=== PATIENT | female | born 1975 | race Caucasian/White ===

== ENCOUNTER 2018-06-20 18:19 | Emergency (ER) | payer OTHER ==
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
[2018-06-20] MEDS ORDERED: MIDAZOLAM 2 MG/2 ML INJ IM ONE (20:11)
[2018-06-20] MEDS ORDERED: HALOPERIDOL LACTATE INJ 5 MG/1 ML VIAL IM ONE (20:11)
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
[2018-06-20 20:54] LABS: ABSOLUTE EOSINOPHILS # (AUTO) 0.1 10^3/uL (0.0-0.6); ABSOLUTE LYMPHOCYTES (AUTO) 2.5 10^3/uL (0.5-4.7); ABSOLUTE MONOCYTES (AUTO) 0.5 10^3/uL (0.1-1.4); ABSOLUTE NEUT (AUTO) 5.3 10^3/uL (1.7-8.2); BASOPHILS % (AUTO) 0.2 % (0-2); EOSINOPHILS % (AUTO) 0.9 % (0-6); HEMATOCRIT 38.6 % (36.0-47.0); HEMOGLOBIN 13.4 g/dL (12.0-15.5); LYMPHOCYTES % (AUTO) 29.6 % (13-45); MEAN CORPUSCULAR HEMOGLOBIN 32.1 pg (27.0-33.4); MEAN CORPUSCULAR HGB CONC 34.8 g/dL (32.0-36.0); MEAN CORPUSCULAR VOLUME 92 fl (80-97); MONOCYTES % (AUTO) 6.3 % (3-13); PLATELET COUNT 263 10^3/uL (150-450); RED BLOOD COUNT 4.18 10^6/uL (3.72-5.28); RED CELL DISTRIBUTION WIDTH 12.8 % (11.5-14.0); TOTAL CELLS COUNTED % (AUTO) 100 %; WHITE BLOOD COUNT 8.4 10^3/uL (4.0-10.5)
[2018-06-20 21:15] LABS: ACETAMINOPHEN < 10 ug/mL (10-30); ALANINE AMINOTRANSFERASE 31 U/L (9-52); ALBUMIN 4.8 g/dL (3.5-5.0); ALCOHOL < 10 mg/dL (NONE DETECTED); ALKALINE PHOSPHATASE 62 U/L (38-126); ANION GAP 13 (5-19); ASPARTATE AMINO TRANSFERASE 32 U/L (14-36); BILIRUBIN,DIRECT 0.3 mg/dL (0.0-0.4); BILIRUBIN,TOTAL 0.3 mg/dL (0.2-1.3); BLOOD UREA NITROGEN 13 mg/dL (7-20); CALCIUM 9.8 mg/dL (8.4-10.2); CARBON DIOXIDE 21 mmol/L (22-30); CHLORIDE 108 mmol/L (98-107); GLUCOSE 96 mg/dL (75-110); SALICYLATE < 1.0 mg/dL (2.0-20.0); SODIUM 141.6 mmol/L (137-145); TOTAL PROTEIN 7.7 g/dL (6.3-8.2)
[2018-06-21 00:38] LABS: APPEARANCE,URINE SLIGHTLY-CLOUDY; BILIRUBIN,URINE NEGATIVE (NEGATIVE); COLOR,URINE YELLOW; GLUCOSE, URINE NEGATIVE (NEGATIVE); KETONES,URINE TRACE mg/dL (NEGATIVE); LEUKOCYTE ESTERASE,URINE MODERATE (NEGATIVE); NITRITE,URINE NEGATIVE (NEGATIVE); PROTEIN,URINE NEGATIVE (NEGATIVE); URINE SPECIFIC GRAVITY 1.008; UROBILINOGEN,URINE NEGATIVE mg/dL (<2.0)
[2018-06-21 00:54] LABS: URINE AMPHETAMINES SCREEN NEGATIVE; URINE BARBITURATES SCREEN NEGATIVE; URINE BENZODIAZEPINES SCREEN UNCONFIRMED POSITIVE; URINE COCAINE SCREEN NEGATIVE; URINE MARIJUANA (THC) SCREEN NEGATIVE; URINE METHADONE SCREEN NEGATIVE; URINE PHENCYCLIDINE SCREEN NEGATIVE
--- NOTE | 2018-06-21 07:43 | EKG REPORT ---
SEVERITY:- NORMAL ECG - SINUS RHYTHM : Confirmed by: Pernell Chadwick MD 21-Jun-2018 07:43:28
[2018-06-21 09:05] VITALS: BP 120/60
[2018-06-21] MEDS ORDERED: CHLORPROMAZINE HCL 50 MG TABLET PO SCH (10:00)
[2018-06-21] MEDS ORDERED: DIVALPROEX SODIUM 250 MG TAB.SR.24H PO SCH (10:00)
[2018-06-21] MEDS ORDERED: BENZTROPINE MESYLATE 1 MG TABLET PO SCH (10:00)
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
[2018-06-21] MEDS ORDERED: CHLORPROMAZINE HCL INJ 25 MG/1 ML AMPULE IM ONE (10:09)
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
== END 2018-06-21 15:05 ==
LOC: EDBD → ER 18:19
DX: F22 Delusional disorders (principal); F29 Unspecified psychosis not due to a substance or known physiological condition
CPT/HCPCS: 93005; 99285; 96372; 36415; 87086; 80307 ×4; 84703; 85025; 80053; 81001; 93010; J2250; J3230; J1630; J3490

== ENCOUNTER 2018-09-16 17:31 | Emergency (ER) | payer OTHER ==
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
[2018-09-16 19:33] LABS: AMORPHOUS SEDIMENT,URINE TRACE /HPF; APPEARANCE,URINE CLOUDY; BILIRUBIN,URINE NEGATIVE (NEGATIVE); COLOR,URINE YELLOW; GLUCOSE, URINE NEGATIVE (NEGATIVE); KETONES,URINE NEGATIVE (NEGATIVE); LEUKOCYTE ESTERASE,URINE LARGE (NEGATIVE); NITRITE,URINE NEGATIVE (NEGATIVE); PROTEIN,URINE NEGATIVE (NEGATIVE); URINE SPECIFIC GRAVITY 1.005; UROBILINOGEN,URINE NEGATIVE mg/dL (<2.0)
[2018-09-16 19:45] LABS: URINE AMPHETAMINES SCREEN NEGATIVE; URINE BARBITURATES SCREEN NEGATIVE; URINE BENZODIAZEPINES SCREEN NEGATIVE; URINE COCAINE SCREEN NEGATIVE; URINE MARIJUANA (THC) SCREEN NEGATIVE; URINE METHADONE SCREEN NEGATIVE; URINE PHENCYCLIDINE SCREEN NEGATIVE
[2018-09-16 19:51] LABS: ABSOLUTE EOSINOPHILS # (AUTO) 0.1 10^3/uL (0.0-0.6); ABSOLUTE LYMPHOCYTES (AUTO) 2.3 10^3/uL (0.5-4.7); ABSOLUTE MONOCYTES (AUTO) 0.5 10^3/uL (0.1-1.4); ABSOLUTE NEUT (AUTO) 4.5 10^3/uL (1.7-8.2); BASOPHILS % (AUTO) 0.3 % (0-2); EOSINOPHILS % (AUTO) 1.4 % (0-6); HEMATOCRIT 40.2 % (36.0-47.0); HEMOGLOBIN 13.9 g/dL (12.0-15.5); LYMPHOCYTES % (AUTO) 31.2 % (13-45); MEAN CORPUSCULAR HEMOGLOBIN 31.3 pg (27.0-33.4); MEAN CORPUSCULAR HGB CONC 34.7 g/dL (32.0-36.0); MEAN CORPUSCULAR VOLUME 90 fl (80-97); MONOCYTES % (AUTO) 7.3 % (3-13); PLATELET COUNT 350 10^3/uL (150-450); RED BLOOD COUNT 4.45 10^6/uL (3.72-5.28); RED CELL DISTRIBUTION WIDTH 12.8 % (11.5-14.0); SEGMENTED NEUTROPHILS % (AUTO) 59.8 % (42-78); TOTAL CELLS COUNTED % (AUTO) 100 %; WHITE BLOOD COUNT 7.5 10^3/uL (4.0-10.5)
[2018-09-16 20:06] LABS: ALANINE AMINOTRANSFERASE 17 U/L (9-52); ALBUMIN 4.8 g/dL (3.5-5.0); ALKALINE PHOSPHATASE 62 U/L (38-126); ANION GAP 13 (5-19); ASPARTATE AMINO TRANSFERASE 19 U/L (14-36); BILIRUBIN,DIRECT 0.2 mg/dL (0.0-0.4); BILIRUBIN,TOTAL 0.3 mg/dL (0.2-1.3); BLOOD UREA NITROGEN 9 mg/dL (7-20); CALCIUM 9.7 mg/dL (8.4-10.2); CARBON DIOXIDE 26 mmol/L (22-30); CHLORIDE 102 mmol/L (98-107); GLUCOSE 99 mg/dL (75-110); POTASSIUM 4.2 mmol/L (3.6-5.0); SODIUM 141.4 mmol/L (137-145)
[2018-09-16 20:07] LABS: ACETAMINOPHEN < 10 ug/mL (10-30); ALCOHOL < 10 mg/dL (NONE DETECTED); SALICYLATE < 1.0 mg/dL (2.0-20.0)
--- NOTE | 2018-09-16 20:11 | ER Document Report ---
ED Psych Disorder / Suicide - General Chief Complaint: Psych Problem Stated Complaint: PSYC EVAL Time Seen by Provider: 09/16/18 18:23 Notes: Patient is a 42-year-old female with a history of paranoid schizophrenia that comes to the emergency department for chief complaint of running out of her medications. She also states she wants to be checked to see if she is . She states that she had prescribed medications but she tore up her prescriptions because at that time she did not want to take them, she states she has changed her mind and she needs her prescriptions. When asked what medications she takes she states she does not know and she does not like being interrogated. She states everywhere she goes she is interrogated. She states she came "my car", she also is complaining of blisters on her feet, she brought multiple bags with her and appears to be homeless although she denies this and states she lives at home with her family. Patient last seen here at the end of May, transferred to [facility], then was at [place], patient cannot tell me when she got out of [place]. TRAVEL OUTSIDE OF THE [place] IN LAST 30 DAYS: No - Related Data Allergies/Adverse Reactions: lactose Adverse Reaction (Verified 06/20/18 18:26) Past Medical History - General Information source: Patient - Social History Smoking Status: Current Every Day Smoker Chew tobacco use (# tins/day): No Frequency of alcohol use: None Drug Abuse: None Lives with: Alone Family History: Reviewed & Not Pertinent Patient has suicidal ideation: No Patient has homicidal ideation: No Renal/ Medical History: Denies: Hx Peritoneal Dialysis Psychiatric Medical History: Reports: Hx Depression, Hx Schizophrenia Past Surgical History: Reports: Hx Nose Surgery - nose, Hx Orthopedic Surgery - R knee - Immunizations Immunizations up to date: Yes Hx Diphtheria, Pertussis, Tetanus Vaccination: Yes Review of Systems - Review of Systems Constitutional: No symptoms reported EENT: No symptoms reported Cardiovascular: No symptoms reported Respiratory: No symptoms reported Gastrointestinal: No symptoms reported Genitourinary: No symptoms reported Female Genitourinary: No symptoms reported Musculoskeletal: No symptoms reported Skin: No symptoms reported Hematologic/Lymphatic: No symptoms reported Neurological/Psychological: See HPI Physical Exam - Vital signs Vitals: Temp Pulse Resp BP Pulse Ox 97.9 F 85 20 124/90 H 98 09/16/18 18:09 09/16/18 18:09 09/16/18 18:09 09/16/18 18:09 09/16/18 18:09 - Notes Notes: GENERAL: Alert. No acute distress. HEAD: Normocephalic, atraumatic. EYES: Pupils equal, round, and reactive to light. Extraocular movements intact. ENT: Oral mucosa moist, tongue midline. Oropharynx unremarkable. Airway patent. Nares patent, no nasal septal hematoma, TM's intact. NECK: Full range of motion. Supple. Trachea midline. LUNGS: Clear to auscultation bilaterally, no wheezes, rales, or rhonchi. No respiratory distress. HEART: Regular rate and rhythm. No murmur ABDOMEN: Soft, non-tender. Non-distended. Bowel sounds present in all 4 quadrants. GENITOURINARY: Deferred EXTREMITIES: Moves all 4 extremities spontaneously. No edema, normal radial and dorsalis pedis pulses bilaterally. No cyanosis. BACK: no cervical, thoracic, lumbar midline tenderness. No saddle anesthesia, normal distal neurovascular exam. NEUROLOGICAL: Alert and oriented x3. Normal speech. [cranial nerves II through XII grossly intact]. PSYCH: Pressured speech, disorganized thought, intermittent anxiety SKIN: Warm, dry, normal turgor. No rashes or lesions noted. Course - Re-evaluation Re-evalutation: Patient has no illicit contacts, cannot give me a name or contact for the family she states she lives with, she appears homeless, she has disorganized thought but she denies hallucinations, hearing voices, SI or HI. Intermittently she says bizarre statements, she intermittently becomes agitated and states everyone always interrogates her, she repeats this over and over. Patient does not have any listed prescriptions here from previously and cannot tell me what she used to be on. Patient has pressured speech and disorganized thought although she does not appear to be actively hallucinating. 09/16/18 On reevaluation patient is much more calm. She states that her doctor is Dr. Garcia, she states he might know her medications. The only medication she really cannot recall at this time is naproxen p.m. She asks for this to be given to her to sleep tonight. She is unsure of her psychiatric medications. The system here does not show any logged data showing her psychiatric medications either, the system also does not show a contact for the patient, patient was unable to tell me a contact when I asked her. Patient is much more calm and cooperative however. She asks pertinent questions, she does not have pressured speech or disorganized thought to the same degree as before. She does not appear to be actively psychotic at this time, she is not suicidal or homicidal, there is no indication for involuntary commitment. I discussed laboratory workup details with patient, informed her of her negative test, discussed her urinalysis, she states she is having urinary frequency and pain, she will be placed on Keflex, she is very agreeable with this. She requests naproxen and Benadryl. After lengthy discussion patient requesting to stay here for medication recommendations so she can get back on medication since she changed her mind about not wanting them begin with. Mental health consult placed, patient is medically cleared. - Vital Signs Vital signs: Temp Pulse Resp BP Pulse Ox 97.9 F 85 20 124/90 H 98 09/16/18 18:09 09/16/18 18:09 09/16/18 18:09 09/16/18 18:09 09/16/18 18:09 - Laboratory Result Diagrams: 09/16/18 19:33 09/16/18 19:33 Laboratory results interpreted by me: 09/16/18 09/16/18 18:30 19:33 Ur Leukocyte Esterase LARGE H Salicylates < 1.0 L Acetaminophen < 10 L Discharge - Discharge Clinical Impression: Noncompliance with medication regimen Schizophrenia Qualifiers: Schizophrenia type: paranoid schizophrenia Qualified Code(s): F20.0 - Paranoid schizophrenia Condition: Stable Disposition: PSYCH HOSP/UNIT
[2018-09-16] MEDS ORDERED: NAPROXEN 250 MG TABLET PO ONE (23:27)
[2018-09-16] MEDS ORDERED: DIPHENHYDRAMINE HCL 25 MG CAPSULE PO ONE (23:27)
[2018-09-16] MEDS ORDERED: CEPHALEXIN 500 MG CAPSULE PO ONE (23:27)
--- NOTE | 2018-09-17 08:02 | EKG REPORT ---
SEVERITY:- NORMAL ECG - SINUS RHYTHM : Confirmed by: Glenda Ferro MD 17-Sep-2018 08:01:42
--- NOTE | 2018-09-17 09:16 | ER Document Report ---
Doctor's Note Notes: 09/17/18 09:15 42-year-old female with past medical history of schizophrenia who supposedly threw away her prescriptions because she did not want prescriptions at that time , who is possibly homeless, who is followed here locally by the psychiatrist, who presents requesting medication adjustments and possibly new scripts for home medications. Labs as recorded. Vital signs are stable. She does appear to have a urinary tract infection which is currently being treated with Keflex. 09/17/18 17:01 Dr. Coppola the head of the psychology department has seen and evaluated the patient. Given that the patient is homeless she advised a Haldol 100 mg IM injection. She has set up community paramedics to follow the patient through Mrs. Lozoya. She states that the patient has the Keflex for her urinary tract infection as well as for the small blister/ulcer on her foot. Strict return precautions have been explained to the patient. She denies any suicidal or homicidal ideations at this time. She is calm and cooperative and understands the follow-up instructions.
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
[2018-09-17] MEDS ORDERED: HALOPERIDOL DECANOATE INJ 100 MG/1 ML VIAL IM ONE (16:05)
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
[2018-09-17 17:38] VITALS: BP 130/80
== END 2018-09-17 17:28 | disposition home or self-care (01) ==
LOC: ER 17:31
DX: F20.0 Paranoid schizophrenia (principal); Z91.14 Patient's other noncompliance with medication regimen; F17.200 Nicotine dependence, unspecified, uncomplicated
CPT/HCPCS: 36415; 80053; 80307; 81001; 81025; 84703; 85025; 93005; 93010; 99285

== ENCOUNTER 2018-12-20 10:54 | Inpatient (IN) | payer OTHER ==
[2018-12-20 11:32] LABS: ABSOLUTE LYMPHOCYTES (AUTO) 1.1 10^3/uL (0.5-4.7); ABSOLUTE MONOCYTES (AUTO) 0.6 10^3/uL (0.1-1.4); ABSOLUTE NEUT (AUTO) 5.5 10^3/uL (1.7-8.2); BASOPHILS % (AUTO) 0.3 % (0-2); HEMATOCRIT 39.4 % (36.0-47.0); LYMPHOCYTES % (AUTO) 15.7 % (13-45); MEAN CORPUSCULAR HEMOGLOBIN 31.6 pg (27.0-33.4); MEAN CORPUSCULAR HGB CONC 35.4 g/dL (32.0-36.0); MEAN CORPUSCULAR VOLUME 89 fl (80-97); MONOCYTES % (AUTO) 7.6 % (3-13); PLATELET COUNT 285 10^3/uL (150-450); RED BLOOD COUNT 4.42 10^6/uL (3.72-5.28); RED CELL DISTRIBUTION WIDTH 13.2 % (11.5-14.0); SEGMENTED NEUTROPHILS % (AUTO) 76.4 % (42-78); TOTAL CELLS COUNTED % (AUTO) 100 %; WHITE BLOOD COUNT 7.3 10^3/uL (4.0-10.5)
[2018-12-20 11:40] LABS: INTERNATIONAL RATION (INR) 1.05; PROTHROMBIN TIME 14.2 SEC (11.4-15.4)
[2018-12-20 11:46] LABS: APPEARANCE,URINE SLIGHTLY-CLOUDY; BILIRUBIN,URINE NEGATIVE (NEGATIVE); COLOR,URINE YELLOW; GLUCOSE, URINE NEGATIVE (NEGATIVE); KETONES,URINE 20 mg/dL (NEGATIVE); LEUKOCYTE ESTERASE,URINE NEGATIVE (NEGATIVE); NITRITE,URINE NEGATIVE (NEGATIVE); PROTEIN,URINE 30 mg/dL (NEGATIVE); URINE SPECIFIC GRAVITY 1.021; UROBILINOGEN,URINE NEGATIVE mg/dL (<2.0)
--- NOTE | 2018-12-20 11:48 | ER Document Report ---
ED General - General Chief Complaint: Altered Mental Status Stated Complaint: ALTERED MENTAL STATUS Time Seen by Provider: 12/20/18 11:33 Mode of Arrival: Medic Information source: Patient, Law Enforcement, Emergency Med Personnel, [facility] Records Cannot obtain history due to: Altered mental status Notes: 42-year-old female with history of paranoid schizophrenia presents via EMS/[facility] with altered mental status. Patient is well-known to [place] [employer] they state the patient is homeless, but one found today she appeared more altered than normal. Patient is alert and oriented x2. She is a poor informant but denies any fall, headache, chest pain, shortness of breath, abdominal pain. She does know that she is at [facility]. TRAVEL OUTSIDE OF THE [place] IN LAST 30 DAYS: No - HPI Onset: Just prior to arrival Similar symptoms previously: Yes Recently seen / treated by doctor: No - Related Data Allergies/Adverse Reactions: lactose Adverse Reaction (Verified 06/20/18 18:26) Past Medical History - General Information source: Patient, Law Enforcement, Emergency Med Personnel, [facility] Records - Social History Smoking Status: Current Every Day Smoker Cigarette use (# per day): Yes - 15 Smoking Education Provided: Yes - Smoking cessation counseling was provided for 4 minutes at the bedside Frequency of alcohol use: None Drug Abuse: None Lives with: Homeless Family History: Reviewed & Not Pertinent Patient has suicidal ideation: No Patient has homicidal ideation: No Renal/ Medical History: Denies: Hx Peritoneal Dialysis Psychiatric Medical History: Reports: Hx Depression, Hx Schizophrenia Past Surgical History: Reports: Hx Nose Surgery - nose, Hx Orthopedic Surgery - R knee - Immunizations Immunizations up to date: Yes Hx Diphtheria, Pertussis, Tetanus Vaccination: Yes Review of Systems - Review of Systems -: Yes ROS unobtainable due to patient's medical condition Physical Exam - Vital signs Vitals: Resp BP Pulse Ox 21 H 110/77 96 12/20/18 11:01 12/20/18 11:01 12/20/18 11:01 - Notes Notes: PHYSICAL EXAMINATION: GENERAL: Unkept no acute distress. HEAD: Atraumatic, normocephalic. EYES: Pupils equal round and reactive to light, extraocular movements intact, conjunctiva are normal. ENT: Nares patent, oropharynx clear without exudates. Moist mucous membranes. NECK: Normal range of motion, supple without lymphadenopathy LUNGS: Breath sounds clear to auscultation bilaterally and equal. No wheezes rales or rhonchi. HEART: Regular rate and rhythm without murmurs ABDOMEN: Soft, nontender, nondistended abdomen. No guarding, no rebound. No masses appreciated. Female : deferred Musculoskeletal: Normal range of motion, no pitting or edema. No cyanosis. NEUROLOGICAL: Cranial nerves grossly intact. Slowed speech, Normal sensory, m otor exams PSYCH: Flat affect, intermittently answers questions. SKIN: Warm, Dry, normal turgor, no rashes or lesions noted. Course - Re-evaluation Re-evalutation: 12/20/18 16:05 Laboratory 12/20/18 12/20/18 12/20/18 11:06 11:06 11:06 WBC 7.3 RBC 4.42 Hgb 14.0 Hct 39.4 MCV 89 MCH 31.6 MCHC 35.4 RDW 13.2 Plt Count 285 Seg Neutrophils % 76.4 Lymphocytes % 15.7 Monocytes % 7.6 Eosinophils % 0.0 Basophils % 0.3 Absolute Neutrophils 5.5 Absolute Lymphocytes 1.1 Absolute Monocytes 0.6 Absolute Eosinophils 0.0 Absolute Basophils 0.0 PT 14.2 INR 1.05 Sodium 141.2 Potassium 3.6 Chloride 99 Carbon Dioxide 31 H Anion Gap 11 BUN 13 Creatinine 0.61 Est GFR ( Amer) > 60 Est GFR (Non-Af Amer) > 60 Glucose 101 Calcium 9.8 Total Bilirubin 0.8 Direct Bilirubin 0.2 Neonat Total Bilirubin Not Reportable Neonat Direct Bilirubin Not Reportable Neonat Indirect Bili Not Reportable AST 449 H ALT 177 H Alkaline Phosphatase 66 Creatine Kinase 02912 H Total Protein 7.8 Albumin 5.0 Urine Color Urine Appearance Urine pH Ur Specific [place] Urine Protein Urine Glucose (UA) Urine Ketones Urine Blood Urine Nitrite Urine Bilirubin Urine Urobilinogen Ur Leukocyte Esterase Urine WBC (Auto) Urine RBC (Auto) Squamous Epi Cells Auto Urine Mucus (Auto) Urine Ascorbic Acid Urine HCG, Qual Urine Opiates Screen Urine Methadone Screen Ur Barbiturates Screen Ur Phencyclidine Scrn Ur Amphetamines Screen U Benzodiazepines Scrn Urine Cocaine Screen U Marijuana (THC) Screen 12/20/18 12/20/18 11:35 11:35 WBC RBC Hgb Hct MCV MCH MCHC RDW Plt Count Seg Neutrophils % Lymphocytes % Monocytes % Eosinophils % Basophils % Absolute Neutrophils Absolute Lymphocytes Absolute Monocytes Absolute Eosinophils Absolute Basophils PT INR Sodium Potassium Chloride Carbon Dioxide Anion Gap BUN Creatinine Est GFR ( Amer) Est GFR (Non-Af Amer) Glucose Calcium Total Bilirubin Direct Bilirubin Neonat Total Bilirubin Neonat Direct Bilirubin Neonat Indirect Bili AST ALT Alkaline Phosphatase Creatine Kinase Total Protein Albumin Urine Color YELLOW Urine Appearance SLIGHTLY-CLOUDY Urine pH 6.0 Ur Specific [place] 1.021 Urine Protein 30 H Urine Glucose (UA) NEGATIVE Urine Ketones 20 H Urine Blood MODERATE H Urine Nitrite NEGATIVE Urine Bilirubin NEGATIVE Urine Urobilinogen NEGATIVE Ur Leukocyte Esterase NEGATIVE Urine WBC (Auto) 1 Urine RBC (Auto) 4 Squamous Epi Cells Auto 1 Urine Mucus (Auto) RARE Urine Ascorbic Acid NEGATIVE Urine HCG, Qual NEGATIVE Urine Opiates Screen NEGATIVE Urine Methadone Screen NEGATIVE Ur Barbiturates Screen NEGATIVE Ur Phencyclidine Scrn NEGATIVE Ur Amphetamines Screen NEGATIVE U Benzodiazepines Scrn NEGATIVE Urine Cocaine Screen NEGATIVE U Marijuana (THC) Screen NEGATIVE Head CT 12/20/18 11:33 IMPRESSION: NO ACUTE INTRACRANIAL IMAGING FINDINGS. EVIDENCE OF ACUTE STROKE: NO. Pelvis X-Ray 12/20/18 14:52 IMPRESSION: No acute displaced fracture. If there is clinical concern for a sacrococcygeal injury, recommend lateral view of the sacrum and coccyx Temp Pulse Resp BP Pulse Ox 97.9 F 97 16 161/97 H 98 12/20/18 11:14 12/20/18 11:14 12/20/18 11:14 12/20/18 15:01 12/20/18 15:01 12/20/18 16:07 42-year-old female with known paranoid schizophrenia who is unfortunately currently homeless was brought in by [facility] due to altered mental status. Patient unable to provide much of a history. She denies any pain, falls on my exam. Labs were obtained and showed the patient to be an rhabdomyolysis. Patient's CK is greater than 17,000. IV fluids was initiated. Patient is without leukocytosis, anemia. Kidney function within normal limits. Urine drug screen negative. Patient has been accepted by the hospitalist for admission - Vital Signs Vital signs: Temp Pulse Resp BP Pulse Ox 97.9 F 97 16 161/97 H 98 12/20/18 11:14 12/20/18 11:14 12/20/18 11:14 12/20/18 15:01 12/20/18 15:01 - Laboratory Result Diagrams: 12/20/18 11:06 12/20/18 11:06 Laboratory results interpreted by me: 12/20/18 12/20/18 11:06 11:35 Carbon Dioxide 31 H AST 449 H ALT 177 H Creatine Kinase 18156 H Urine Protein 30 H Urine Ketones 20 H Urine Blood MODERATE H - EKG Interpretation by Me EKG shows normal: Sinus rhythm Rate: Normal Rhythm: NSR When compared to previous EKG there are: No significant change Discharge - Discharge Clinical Impression: Paranoid schizophrenia, Transaminitis Altered mental status Qualifiers: Altered mental status type: unspecified Qualified Code(s): R41.82 - Altered mental status, unspecified Rhabdomyolysis Qualifiers: Rhabdomyolysis type: non-traumatic Qualified Code(s): M62.82 - Rhabdomyolysis Condition: Good Disposition: ADMITTED INPATIENT Admitting Provider: Hospitalist Unit Admitted: Medical Floor
[2018-12-20 11:51] LABS: ALANINE AMINOTRANSFERASE 177 U/L (9-52); ALKALINE PHOSPHATASE 66 U/L (38-126); ANION GAP 11 (5-19); ASPARTATE AMINO TRANSFERASE 449 U/L (14-36); BILIRUBIN,DIRECT 0.2 mg/dL (0.0-0.4); BILIRUBIN,TOTAL 0.8 mg/dL (0.2-1.3); BLOOD UREA NITROGEN 13 mg/dL (7-20); CALCIUM 9.8 mg/dL (8.4-10.2); CARBON DIOXIDE 31 mmol/L (22-30); CHLORIDE 99 mmol/L (98-107); GLUCOSE 101 mg/dL (75-110); POTASSIUM 3.6 mmol/L (3.6-5.0); SODIUM 141.2 mmol/L (137-145); TOTAL PROTEIN 7.8 g/dL (6.3-8.2)
[2018-12-20 12:11] LABS: URINE AMPHETAMINES SCREEN NEGATIVE; URINE BARBITURATES SCREEN NEGATIVE; URINE BENZODIAZEPINES SCREEN NEGATIVE; URINE COCAINE SCREEN NEGATIVE; URINE MARIJUANA (THC) SCREEN NEGATIVE; URINE METHADONE SCREEN NEGATIVE; URINE PHENCYCLIDINE SCREEN NEGATIVE
--- NOTE | 2018-12-20 12:22 | RADIOLOGY REPORT (SQ) ---
EXAM DESCRIPTION: CT HEAD WITHOUT COMPLETED DATE/TIME: 12/20/2018 12:06 pm REASON FOR STUDY: ams COMPARISON: None. TECHNIQUE: Axial images acquired through the brain without intravenous contrast. Images reviewed wi th bone, brain and subdural windows. Additional sagittal and coronal reconstructions were generated. Images stored on PACS. All CT scanners at this facility use dose modulation, iterative reconstruction, and/or weight based d osing when appropriate to reduce radiation dose to as low as reasonably achievable (ALARA). [facility]: Dose Right [facility]: CareDose [facility]: Dose Right [facility]: Teradose 4D [facility]: bttn RADIATION DOSE: CT Rad equipment meets quality standard of care and radiation dose reduction techniq ues were employed. CTDIvol: 53.2 mGy. DLP: 1150 mGy-cm. mGy. LIMITATIONS: None. FINDINGS: VENTRICLES: Normal size and contour. CEREBRUM: No masses. No hemorrhage. No midline shift. No evidence for acute infarction. Normal gra y/white matter differentiation. No areas of low density in the white matter. CEREBELLUM: No masses. No hemorrhage. No alteration of density. No evidence for acute infarction. EXTRAAXIAL SPACES: No fluid collections. No masses. ORBITS AND GLOBE: No intra- or extraconal masses. Normal contour of globe without masses. CALVARIUM: No fracture. PARANASAL SINUSES: No fluid or mucosal thickening. SOFT TISSUES: No mass or hematoma. OTHER: No other significant finding. IMPRESSION: NO ACUTE INTRACRANIAL IMAGING FINDINGS. EVIDENCE OF ACUTE STROKE: NO. COMMENT: Quality ID # [id number]: Final reports with documentation of one or more dose reduction techniques (e.g., Automated exposure control, adjustment of the mA and/or kV according to patient size, use of iterative reconstruction technique) TECHNICAL DOCUMENTATION: JOB ID: [id number] [employer]- All Rights Reserved Reading location - IP/workstation name: [email or web address]
[2018-12-20 12:29] LABS: CREATINE KINASE 17858 U/L (30-135)
[2018-12-20] MEDS ORDERED: NORMAL SALINE 1000 ML 1,000 ML IV ONE ×2 (14:08→14:16)
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
--- NOTE | 2018-12-20 15:38 | PSYCHOLOGICAL NOTE ---
Psych Note - Psych Note Date seen by psych provider: 12/20/18 Time seen by psych provider: 15:15 - Chart review Psych Note: Reason for Consult: AMS, Hx Paranoid Schizophrenia Contact Permissions: Unknown Patient is a 42 year old female who presented to the ED today via EMS for AMS after [employer] found her wandering around and seemed more altered than usual. Her UDS is negative for all substances tested. Her AST was 4449 H [place] 177H [place] [address] dated 12/17/18 completed secondary to AMS had no chronic or acute findings. She was administered Sodium Chloride while in the ED. She is being admitted to hospitalist services for Rhabdomyolysis, Paranoid Schizophrenia and Transaminitis (likely from Rhabdo). She was sitting in bed with wide eyed, blank stare. She stated "I'm restless." She denied taking medications since her discharge from previous ED visit in August 2018 and commented "too much has happened." Medical staff brought snacks in (cesar crackers, applesauce) and she immediately went for crackers, was a bit tremulous, asked if this clinician could open it for her and when grabbing the crackers out of the package she remained tremulous. When asked if she was always shaky she said "I'm not normally shaky." She then said "I am restless, I have been in this bed all day and my legs are restless, it's so uncomfortable." Patient was alert and oriented to self, person, place, time and situation at least in the here and now/immediacy. Mood was melancholy with flat affect. No comments or gestures were made regarding SI/HI. She did not appear to be responding to any internal stimuli that interfered with her ability to express needs/wants. Thought processes were perseverative on feeling restless from having been in the bed all day and somewhat slowed. Conversational speech was soft in tone and slower in rate. Intellectual abilities are estimated to be average. Insight, judgment and impulse control were fair to poor as evidenced by answering questions when addressed however being altered. Chart review revealed patient was seen by Behavioral Health on 06/21/18, at that time MCM noted patient was familiar to them and had marked change in behavior with endorsed delusions, she had a UTI then, was started on medications of Thorazine 50MG Q8H/Cogentin 1MG QD/Depakote 250MG BID and then accepted to [facility] for inpatient hospitalization. She was seen again on 09/16/18 where she admitted she had not filled prescriptions [facility] had discharged her with, said she planned to follow up with the Health Department and/or DSS the following week and had another UTI (Keflex prescribed). Azeri is her primary language. Attending nurse reported patient was not disheveled or unkept when she came in. She had a nice coat, a pair of converse on and a [employer] purse. She noted flat affect. Diagnosis: 295.90 (F20.9) Schizophrenia, Paranoid Type by History Medication recommendations made by the psychiatric medical provider, Dr. Alex MD, includes: Add Thorazine 50MG every 8 hours as needed for psychosis Add Cogentin 1MG in conjunction with the above antipsychotic to curb tremor side effects often associated with such medication Impression/Plan: Patient being admitted medically but still in ED. She is not an immediate danger to herself and others with respect to SI/HI or psychosis that interferes with ability to express wants and needs. Elevated CK levels may be exacerbating AMS and once that levels out she may become baseline. At that point can address scheduled medications though history indicates she is noncompliant and does not follow through. Consulted with Dr. Coppola regarding the management and care of patient. ED Physician made aware of medications recommendations and said would order them and talk with hospitalist.
--- NOTE | 2018-12-20 15:55 | RADIOLOGY REPORT (SQ) ---
EXAM DESCRIPTION: PELVIS AP COMPLETED DATE/TIME: 12/20/2018 3:47 pm REASON FOR STUDY: fall, fell on buttocks COMPARISON: None. NUMBER OF VIEWS: One view TECHNIQUE: AP Pelvis LIMITATIONS: Rotated towards the WHITE position, no lateral view to evaluate the sacrococcygeal juncti on FINDINGS: MINERALIZATION: Normal. HIPS: No acute fracture or dislocation. No worrisome bone lesions. PELVIS AND SACRUM: No acute fracture or dislocation. No worrisome bone lesions. PUBIS AND ISCHIUM: No acute fracture. LOWER LUMBAR SPINE: No significant findings as visualized. SOFT TISSUES: No findings. OTHER: No other significant finding. IMPRESSION: No acute displaced fracture. If there is clinical concern for a sacrococcygeal injury, recommend lateral view of the sacrum and co ccyx TECHNICAL DOCUMENTATION: JOB ID: [id number] [employer]- All Rights Reserved Reading location - IP/workstation name: [email or web address]
[2018-12-20] MEDS ORDERED: CHLORPROMAZINE HCL 50 MG TABLET PO PRN (16:20)
[2018-12-20] MEDS ORDERED: BENZTROPINE MESYLATE INJ 2 MG/2 ML AMPULE IM PRN (16:21)
[2018-12-21] MEDS: NORMAL SALINE 1000 ML 1,000 ML IV PRN (04:25)
[2018-12-21 07:40] LABS: ALANINE AMINOTRANSFERASE 134 U/L (9-52); ALKALINE PHOSPHATASE 56 U/L (38-126); ANION GAP 9 (5-19); ASPARTATE AMINO TRANSFERASE 270 U/L (14-36); BILIRUBIN,DIRECT 0.1 mg/dL (0.0-0.4); BILIRUBIN,TOTAL 0.4 mg/dL (0.2-1.3); BLOOD UREA NITROGEN 7 mg/dL (7-20); CALCIUM 9.1 mg/dL (8.4-10.2); CARBON DIOXIDE 29 mmol/L (22-30); CHLORIDE 102 mmol/L (98-107); GLUCOSE 122 mg/dL (75-110); SODIUM 139.7 mmol/L (137-145); TOTAL PROTEIN 6.4 g/dL (6.3-8.2)
--- NOTE | 2018-12-21 09:36 | EKG REPORT ---
SEVERITY:- BORDERLINE ECG - SINUS RHYTHM BORDERLINE INFERIOR Q WAVES : Confirmed by: Kayli Prince 21-Dec-2018 09:35:39
[2018-12-21] MEDS ORDERED: POTASSIUM CHLORIDE 20 MEQ/15 ML UDCUP PO ONE (10:00)
[2018-12-21] MEDS ORDERED: POTASSIUM CHLORIDE 20 MEQ/15 ML UDCUP ONE (14:29)
[2018-12-21 19:01] LABS: ANION GAP 9 (5-19); BLOOD UREA NITROGEN 5 mg/dL (7-20); CALCIUM 9.5 mg/dL (8.4-10.2); CARBON DIOXIDE 29 mmol/L (22-30); CHLORIDE 101 mmol/L (98-107); GLUCOSE 115 mg/dL (75-110); POTASSIUM 3.5 mmol/L (3.6-5.0); SODIUM 138.6 mmol/L (137-145)
--- NOTE | 2018-12-21 19:14 | PDOC PROGRESS REPORT ---
Subjective Progress Note for:: 12/21/18 Subjective:: TRINA PERRY is a 42 year old female with a PMH of paranoid schizophrenia and homelessness [place]) who was brought in by [facility] due to being "not her usual self". Reportedly, [facility] is familiar with patient as they always see her in the street and they noticed she was "not acting like her usual self". There is no further elaboration on this. Head CT and UDS were negative. In the ER, her work-up was only remarkably elevated CK. Hospitalist service was called to admit her for OBS for IV fluid hydration and need for further psych eval. No acute event overnight. She says she feels a little better today. CK has improved this morning. She continues to have a very flat affect. Reason For Visit: RHABDOMYOLYSIS Physical Exam Vital Signs: Temp Pulse Resp BP Pulse Ox 97.9 F 87 16 151/90 H 97 12/21/18 13:36 12/21/18 13:36 12/21/18 13:36 12/21/18 13:36 12/21/18 13:36 Intake & Output 12/20/18 12/21/18 12/22/18 06:59 06:59 06:59 Intake Total 2950 Output Total 400 Balance 2550 Weight 144 lb 2.917 oz General appearance: PRESENT: no acute distress, well-developed, well-nourished Head exam: PRESENT: atraumatic, normocephalic Eye exam: PRESENT: conjunctiva pink, EOMI, PERRLA. ABSENT: scleral icterus Ear exam: PRESENT: normal external ear exam Mouth exam: PRESENT: moist, tongue midline Neck exam: ABSENT: carotid bruit, JVD, lymphadenopathy, thyromegaly Respiratory exam: PRESENT: clear to auscultation aileen. ABSENT: rales, rhonchi, wheezes Cardiovascular exam: PRESENT: RRR. ABSENT: diastolic murmur, rubs, systolic murmur Pulses: PRESENT: normal dorsalis pedis pul GI/Abdominal exam: PRESENT: normal bowel sounds, soft. ABSENT: distended, guarding, mass, organolmegaly, rebound, tenderness Rectal exam: PRESENT: deferred Neurological exam: PRESENT: alert, awake, oriented to person, oriented to place, oriented to time, oriented to situation, CN II-XII grossly intact. ABSENT: motor sensory deficit Psychiatric exam: PRESENT: flat affect Results Laboratory Results: 12/20/18 11:06 12/21/18 18:32 12/21/18 12/21/18 12/21/18 06:57 06:57 18:32 Sodium 139.7 138.6 Potassium 3.0 L* 3.5 L Chloride 102 101 Carbon Dioxide 29 29 Anion Gap 9 9 BUN 7 5 L Creatinine 0.62 0.66 Est GFR ( Amer) > 60 > 60 Est GFR (Non-Af Amer) > 60 > 60 Glucose 122 H 115 H Calcium 9.1 9.5 Magnesium 2.0 Total Bilirubin 0.4 AST 270 H ALT 134 H Alkaline Phosphatase 56 Total Protein 6.4 Albumin 4.0 12/20/18 12/21/18 12/21/18 11:06 06:57 06:57 Creatine Kinase 70318 H 9200 H CK-MB (CK-2) 12.40 H Impressions: Head CT 12/20/18 11:33 IMPRESSION: NO ACUTE INTRACRANIAL IMAGING FINDINGS. EVIDENCE OF ACUTE STROKE: NO. Pelvis X-Ray 12/20/18 14:52 IMPRESSION: No acute displaced fracture. If there is clinical concern for a sacrococcygeal injury, recommend lateral view of the sacrum and coccyx Assessment & Plan - Diagnosis (1) Rhabdomyolysis Qualifiers: Rhabdomyolysis type: non-traumatic Qualified Code(s): M62.82 - Rhabdomyolysis Is this a current diagnosis for this admission?: Yes Plan: Likely related to a recent fall. She is getting a liter of IV bolus. Improving. CK still elevated but trending down. Will continue IV fluids. (2) Paranoid schizophrenia Is this a current diagnosis for this admission?: Yes Plan: Patient has a very flat affect. When asked if she's aware of the unusual change in her demeanor noted by [facility], she nods and says "it's just too much mental stress". She is not able to expound on it when prompted. She denies recent physical or sexual assault being homeless. Will follow up on psych about PO maintenance medications for her schizophrenia or if she needs to be restarted on a maintenance regimen. (3) Transaminitis Is this a current diagnosis for this admission?: Yes Plan: Likely related to rhabdo. - Time Time Spent with patient: 15-24 minutes
[2018-12-21] MEDS: CHLORPROMAZINE HCL 50 MG TABLET PO PRN (20:56)
[2018-12-22 05:39] LABS: ALANINE AMINOTRANSFERASE 112 U/L (9-52); ALBUMIN 3.9 g/dL (3.5-5.0); ALKALINE PHOSPHATASE 48 U/L (38-126); ANION GAP 8 (5-19); ASPARTATE AMINO TRANSFERASE 160 U/L (14-36); BILIRUBIN,DIRECT 0.2 mg/dL (0.0-0.4); BILIRUBIN,TOTAL 0.5 mg/dL (0.2-1.3); BLOOD UREA NITROGEN 5 mg/dL (7-20); CARBON DIOXIDE 30 mmol/L (22-30); CHLORIDE 102 mmol/L (98-107); GLUCOSE 100 mg/dL (75-110); POTASSIUM 3.4 mmol/L (3.6-5.0); SODIUM 139.8 mmol/L (137-145); TOTAL PROTEIN 6.1 g/dL (6.3-8.2)
[2018-12-22 05:56] LABS: CREATINE KINASE 3075 U/L (30-135)
--- NOTE | 2018-12-22 12:03 | PSYCHOLOGICAL NOTE ---
Psych Note - Psych Note Date seen by psych provider: 12/22/18 Psych Note: Reason for Consult: Paranoid Schizophrenia medication recommendations Clinician spoke with APS worker, Eladio Rehman. He disclosed that he had an open case with the patient that was closed November 23, 2018. He reports that on 12/16/2018 they were again asked to do a "out reach" to the patient. He reports that during that visit the patient was seen for over an hour and provided multiple resources to assist with her current needs such as getting a copy of her green card, a copy of her ID, further assistance with outpatient providers, residential information etc. He discloses that the patient has mentioned wanting to go back to [place] however financially is unable to do this. This is not something DSS can assist with. He discloses they have also been in contact with the patient's sister in [place] who reports that the patient has a long history diagnosis and receives social assistance in [place] for schizophrenia. Patient is currently homeless because she has a domestic violence protection order against her taken out by her and cannot return to the home. There is currently an open case with CPS with the patient also. Patient historically is non-med compliant and does not follow-up with outpatient services. Diagnosis: 295.90 (F20.9) Schizophrenia, Paranoid Type by History Medication recommendations made by the psychiatric medical provider, Dr. Alex MD, includes: Haldol decanoate 100 mg once Haldol 5 mg twice daily Cogentin 1 mg daily Impression/Plan: Patient is cleared from acute psychiatric services. Patient is historically noncompliant and does not follow through with recommendations. She has been in touch with multiple community agencies in attempt to provide services. Patient does not follow-up with medications; however, if she is interested and willing, medication recommendation of a monthly shot to assist with continued stabilization has been provided. Patient is recommended to follow recommendations that she received from Adult Protective Services on 12/16/2018 in addition to outpatient mental health services. Dr. Coppola was consulted and the care management of this patient; attending physicians in agreement with recommendations and disposition.
[2018-12-22] MEDS ORDERED: POTASSIUM CHLORIDE 10 MEQ CAPSULE.ER PO ONE (12:52)
--- NOTE | 2018-12-22 12:59 | PDOC PROGRESS REPORT ---
Subjective Progress Note for:: 12/22/18 Subjective:: TRINA PERRY is a 42 year old female with a PMH of paranoid schizophrenia and homelessness ([place]) who was brought in by [facility] due to being "not her usual self". Reportedly, [facility] is familiar with patient as they always see her in the street and they noticed she was "not acting like her usual self". There is no further elaboration on this. Head CT and UDS were negative. In the ER, her work-up was only remarkably elevated CK. Hospitalist service was called to admit her for OBS for IV fluid hydration and need for further psych eval. 12/21: She says she feels a little better today. CK has improved this morning. She continues to have a very flat affect. 12/22: No acute event overnight. CK continue to trend down with IV fluids. Reason For Visit: RHABDOMYOLYSIS Physical Exam Vital Signs: Temp Pulse Resp BP Pulse Ox 97.4 F 79 16 130/84 H 97 12/21/18 17:32 12/21/18 17:32 12/21/18 17:32 12/21/18 17:32 12/21/18 17:32 Intake & Output 12/21/18 12/22/18 12/23/18 06:59 06:59 06:59 Intake Total 2950 1379 Output Total 400 Balance 2550 1379 Weight 144 lb 2.917 oz 141 lb 15.643 oz General appearance: PRESENT: no acute distress, well-developed, well-nourished Head exam: PRESENT: atraumatic, normocephalic Eye exam: PRESENT: conjunctiva pink, EOMI, PERRLA. ABSENT: scleral icterus Ear exam: PRESENT: normal external ear exam Neck exam: ABSENT: carotid bruit, JVD, lymphadenopathy, thyromegaly Respiratory exam: PRESENT: clear to auscultation aileen. ABSENT: rales, rhonchi, wheezes Cardiovascular exam: PRESENT: RRR. ABSENT: diastolic murmur, rubs, systolic murmur Pulses: PRESENT: normal dorsalis pedis pul GI/Abdominal exam: PRESENT: normal bowel sounds, soft. ABSENT: distended, guarding, mass, organolmegaly, rebound, tenderness Rectal exam: PRESENT: deferred Neurological exam: PRESENT: alert, awake, oriented to person, oriented to place, CN II-XII grossly intact. ABSENT: motor sensory deficit Results Laboratory Results: 12/20/18 11:06 12/22/18 04:20 12/21/18 12/22/18 18:32 04:20 Sodium 138.6 139.8 Potassium 3.5 L 3.4 L Chloride 101 102 Carbon Dioxide 29 30 Anion Gap 9 8 BUN 5 L 5 L Creatinine 0.66 0.59 Est GFR ( Amer) > 60 > 60 Est GFR (Non-Af Amer) > 60 > 60 Glucose 115 H 100 Calcium 9.5 9.0 Total Bilirubin 0.5 AST 160 H ALT 112 H Alkaline Phosphatase 48 Total Protein 6.1 L Albumin 3.9 12/20/18 12/21/18 12/21/18 11:06 06:57 06:57 Creatine Kinase 60031 H 9200 H CK-MB (CK-2) 12.40 H 12/22/18 04:20 Creatine Kinase 3075 H CK-MB (CK-2) Impressions: Head CT 12/20/18 11:33 IMPRESSION: NO ACUTE INTRACRANIAL IMAGING FINDINGS. EVIDENCE OF ACUTE STROKE: NO. Pelvis X-Ray 12/20/18 14:52 IMPRESSION: No acute displaced fracture. If there is clinical concern for a sacrococcygeal injury, recommend lateral view of the sacrum and coccyx Assessment & Plan - Diagnosis (1) Rhabdomyolysis Qualifiers: Rhabdomyolysis type: non-traumatic Qualified Code(s): M62.82 - Rhabdomyolysis Is this a current diagnosis for this admission?: Yes Plan: Likely related to a recent fall. She is getting a liter of IV bolus. Improving. CK continue to trend down. Will continue IV fluids. (2) Paranoid schizophrenia Is this a current diagnosis for this admission?: Yes Plan: Patient has a very flat affect. When asked if she's aware of the unusual change in her demeanor noted by [facility], she nods and says "it's just too much mental stress". She is not able to expound on it when prompted. She denies recent physical or sexual assault being homeless. Will follow up on psych about PO maintenance medications for her schizophrenia or if she needs to be restarted on a maintenance regimen. 12/22: Noted psych recommendations for her home meds. (3) Transaminitis Is this a current diagnosis for this admission?: Yes Plan: Improving. Likely related to rhabdo. (4) Hypokalemia Is this a current diagnosis for this admission?: Yes Plan: Will replace with 40 meqs PO. - Time Time Spent with patient: 25-34 minutes
[2018-12-22] MEDS: CHLORPROMAZINE HCL 50 MG TABLET PO PRN ×2 (15:04→21:14)
[2018-12-22] MEDS: NORMAL SALINE 1000 ML 1,000 ML IV PRN (18:47)
[2018-12-22] MEDS: BENZTROPINE MESYLATE 1 MG TABLET PO SCH (21:13)
[2018-12-22] MEDS: HALOPERIDOL 5 MG TABLET PO SCH (21:13)
[2018-12-23] MEDS: NORMAL SALINE 1000 ML 1,000 ML IV PRN ×3 (01:30→18:15)
[2018-12-23 06:18] LABS: ANION GAP 9 (5-19); BLOOD UREA NITROGEN 5 mg/dL (7-20); CALCIUM 9.3 mg/dL (8.4-10.2); CARBON DIOXIDE 29 mmol/L (22-30); CHLORIDE 102 mmol/L (98-107); CREATINE KINASE 1256 U/L (30-135); GLUCOSE 109 mg/dL (75-110); POTASSIUM 3.6 mmol/L (3.6-5.0); SODIUM 140.2 mmol/L (137-145)
[2018-12-23] MEDS: HALOPERIDOL 5 MG TABLET PO SCH ×2 (11:21→22:05)
--- NOTE | 2018-12-23 11:58 | PDOC PROGRESS REPORT ---
Subjective Progress Note for:: 12/23/18 Subjective:: TRINA PERRY is a 42 year old female with a PMH of paranoid schizophrenia and homelessness ([place] a [place]) who was brought in by [facility] due to being "not her usual self". Reportedly, [facility] is familiar with patient as they always see her in the street and they noticed she was "not acting like her usual self". There is no further elaboration on this. Head CT and UDS were negative. In the ER, her work-up was only remarkably elevated CK. Hospitalist service was called to admit her for OBS for IV fluid hydration and need for further psych eval. 12/21: She says she feels a little better today. CK has improved this morning. She continues to have a very flat affect. 12/22: No acute event overnight. CK continue to trend down with IV fluids. 12/23: She complains of neck and generalized back pain this morning as well as burning on the left eye which does appear slightly hyperemic. CK continue to trend down. She was evaluated by PT who has recommended ambulation with staff assistance. Reason For Visit: RHABDOMYOLYSIS Physical Exam Vital Signs: Temp Pulse Resp BP Pulse Ox 97.5 F 83 16 125/83 100 12/23/18 08:00 12/23/18 08:00 12/23/18 08:00 12/23/18 08:00 12/23/18 08:00 Intake & Output 12/22/18 12/23/18 12/24/18 06:59 06:59 06:59 Intake Total 2379 1320 Balance 2379 1320 Weight 141 lb 15.643 oz 143 lb 15.39 oz General appearance: PRESENT: no acute distress, well-developed, well-nourished Head exam: PRESENT: atraumatic, normocephalic Eye exam: PRESENT: conjunctival injection - slight hyperemia on the left conj, conjunctiva pink, EOMI, PERRLA. ABSENT: scleral icterus Ear exam: PRESENT: normal external ear exam Mouth exam: PRESENT: moist, tongue midline Neck exam: ABSENT: carotid bruit, JVD, lymphadenopathy, thyromegaly Respiratory exam: PRESENT: clear to auscultation aileen. ABSENT: rales, rhonchi, wheezes Cardiovascular exam: PRESENT: RRR. ABSENT: diastolic murmur, rubs, systolic murmur Pulses: PRESENT: normal dorsalis pedis pul GI/Abdominal exam: PRESENT: normal bowel sounds, soft. ABSENT: distended, guarding, mass, organolmegaly, rebound, tenderness Rectal exam: PRESENT: deferred Neurological exam: PRESENT: alert, awake, oriented to person, oriented to place, oriented to time, oriented to situation, CN II-XII grossly intact. ABSENT: motor sensory deficit Psychiatric exam: PRESENT: flat affect Results Laboratory Results: 12/20/18 11:06 12/23/18 04:54 12/22/18 12/23/18 17:02 04:54 Sodium 140.2 Potassium 3.8 3.6 Chloride 102 Carbon Dioxide 29 Anion Gap 9 BUN 5 L Creatinine 0.53 Est GFR ( Amer) > 60 Est GFR (Non-Af Amer) > 60 Glucose 109 Calcium 9.3 12/20/18 12/21/18 12/21/18 11:06 06:57 06:57 Creatine Kinase 38530 H 9200 H CK-MB (CK-2) 12.40 H 12/22/18 12/23/18 04:20 04:54 Creatine Kinase 3075 H 1256 H CK-MB (CK-2) Impressions: Head CT 12/20/18 11:33 IMPRESSION: NO ACUTE INTRACRANIAL IMAGING FINDINGS. EVIDENCE OF ACUTE STROKE: NO. Pelvis X-Ray 12/20/18 14:52 IMPRESSION: No acute displaced fracture. If there is clinical concern for a sacrococcygeal injury, recommend lateral view of the sacrum and coccyx Assessment & Plan - Diagnosis (1) Rhabdomyolysis Qualifiers: Rhabdomyolysis type: non-traumatic Qualified Code(s): M62.82 - Rhab domyolysis Is this a current diagnosis for this admission?: Yes Plan: Likely related to a recent fall. She is getting a liter of IV bolus. Improving. CK continue to trend down. Will continue IV fluids. (2) Paranoid schizophrenia Is this a current diagnosis for this admission?: Yes Plan: Patient has a very flat affect. When asked if she's aware of the unusual change in her demeanor noted by [facility], she nods and says "it's just too much mental stress". She is not able to expound on it when prompted. She denies recent physical or sexual assault being homeless. Will follow up on psych about PO maintenance medications for her schizophrenia or if she needs to be restarted on a maintenance regimen. 12/22: Noted psych recommendations for her home meds. Started PO haldol and cogentin. (3) Transaminitis Is this a current diagnosis for this admission?: Yes Plan: Improving. Likely related to rhabdo. (4) Hypokalemia Is this a current diagnosis for this admission?: Yes Plan: Resolved. - Time Time Spent with patient: 25-34 minutes
--- NOTE | 2018-12-23 13:07 | RADIOLOGY REPORT (SQ) ---
EXAM DESCRIPTION: CHEST SINGLE VIEW COMPLETED DATE/TIME: 12/23/2018 12:58 pm REASON FOR STUDY: nonspecific back pain, hx of fall COMPARISON: None. EXAM PARAMETERS: NUMBER OF VIEWS: One view. TECHNIQUE: Single frontal radiographic view of the chest acquired. RADIATION DOSE: NA LIMITATIONS: None. FINDINGS: LUNGS AND PLEURA: No opacities, masses or pneumothorax. No pleural effusion. MEDIASTINUM AND HILAR STRUCTURES: No masses. Contour normal. HEART AND VASCULAR STRUCTURES: Heart normal in size. Normal vasculature. BONES: No acute findings. HARDWARE: None in the chest. OTHER: No other significant finding. IMPRESSION: NO ACUTE RADIOGRAPHIC FINDING IN THE CHEST. TECHNICAL DOCUMENTATION: JOB ID: [id number] [employer]- All Rights Reserved Reading location - IP/workstation name: [email or web address]
--- NOTE | 2018-12-23 13:09 | RADIOLOGY REPORT (SQ) ---
EXAM DESCRIPTION: CERV SP 3 VIEW OR LESS COMPLETED DATE/TIME: 12/23/2018 12:58 pm REASON FOR STUDY: neck pain, hx of fall COMPARISON: None. NUMBER OF VIEWS: Three views. TECHNIQUE: AP, lateral and odontoid radiographic images acquired of the cervical spine. LIMITATIONS: Limited odontoid view. Patient's lower teeth are superimposed on the C2 level FINDINGS: MINERALIZATION: Normal. ALIGNMENT: Anatomic. VERTEBRAE: Vertebral bodies of normal height. DISCS: No significant disc space narrowing. No large osteophytes. HARDWARE: None in the spine. SOFT TISSUES: No masses or calcifications. Lung apices clear. OTHER: No other significant finding. IMPRESSION: Limited negative study TECHNICAL DOCUMENTATION: JOB ID: [id number] [employer]- All Rights Reserved Reading location - IP/workstation name: [email or web address]
[2018-12-23] MEDS: CHLORPROMAZINE HCL 50 MG TABLET PO PRN (13:25)
[2018-12-23] MEDS: CIPROFLOXACIN HCL 0.3% OPH SOLN 2.5 ML OS SCH ×2 (13:25→18:09)
[2018-12-23] MEDS: BENZTROPINE MESYLATE 1 MG TABLET PO SCH (22:05)
[2018-12-24] MEDS: NORMAL SALINE 1000 ML 1,000 ML IV PRN ×2 (01:45→17:02)
[2018-12-24] MEDS: CIPROFLOXACIN HCL 0.3% OPH SOLN 2.5 ML OS SCH ×4 (01:49→17:02)
[2018-12-24] MEDS: HALOPERIDOL 5 MG TABLET PO SCH ×2 (11:41→21:39)
--- NOTE | 2018-12-24 14:40 | PDOC PROGRESS REPORT ---
Subjective Progress Note for:: 12/24/18 Subjective:: TRINA PERRY is a 42 year old female with a PMH of paranoid schizophrenia and homelessness ([place]) who was brought in by [facility] due to being "not her usual self". Reportedly, [facility] is familiar with patient as they always see her in the street and they noticed she was "not acting like her usual self". There is no further elaboration on this. Head CT and UDS were negative. In the ER, her work-up was only remarkably elevated CK. Hospitalist service was called to admit her for OBS for IV fluid hydration and need for further psych eval. 12/21: She says she feels a little better today. CK has improved this morning. She continues to have a very flat affect. 12/22: No acute event overnight. CK continue to trend down with IV fluids. 12/23: She complains of neck and generalized back pain this morning as well as burning on the left eye which does appear slightly hyperemic. CK continue to trend down. She was evaluated by PT who has recommended ambulation with staff assistance. 12/24: No acute event overnight. She looks better and appears less anxious today. Left conjunctival erythema has significantly improved with cipro eye drops. Discharge planning is coordinating with Nicole from [facility] for final dispostion/placement. Reason For Visit: RHABDOMYOLYSIS Physical Exam Vital Signs: Temp Pulse Resp BP Pulse Ox 97.4 F 82 16 131/78 H 100 12/24/18 11:47 12/24/18 11:47 12/24/18 11:47 12/24/18 11:47 12/24/18 11:47 Intake & Output 12/23/18 12/24/18 12/25/18 06:59 06:59 06:59 Intake Total 1320 4286 240 Balance 1320 4286 240 Weight 143 lb 15.39 oz 141 lb 15.643 oz General appearance: PRESENT: no acute distress, well-developed, well-nourished Head exam: PRESENT: atraumatic, normocephalic Eye exam: PRESENT: conjunctiva pink, EOMI, PERRLA. ABSENT: scleral icterus Ear exam: PRESENT: normal external ear exam Mouth exam: PRESENT: moist, tongue midline Neck exam: ABSENT: carotid bruit, JVD, lymphadenopathy, thyromegaly Respiratory exam: PRESENT: clear to auscultation aileen. ABSENT: rales, rhonchi, wheezes Cardiovascular exam: PRESENT: RRR. ABSENT: diastolic murmur, rubs, systolic murmur Pulses: PRESENT: normal dorsalis pedis pul GI/Abdominal exam: PRESENT: normal bowel sounds, soft. ABSENT: distended, guarding, mass, organolmegaly, rebound, tenderness Rectal exam: PRESENT: deferred Neurological exam: PRESENT: alert, awake, oriented to person, oriented to place, oriented to time, oriented to situation, CN II-XII grossly intact. ABSENT: motor sensory deficit Psychiatric exam: PRESENT: flat affect Results Laboratory Results: 12/20/18 11:06 12/23/18 04:54 12/20/18 12/21/18 12/21/18 11:06 06:57 06:57 Creatine Kinase 55551 H 9200 H CK-MB (CK-2) 12.40 H 12/22/18 12/23/18 04:20 04:54 Creatine Kinase 3075 H 1256 H CK-MB (CK-2) Impressions: Head CT 12/20/18 11:33 IMPRESSION: NO ACUTE INTRACRANIAL IMAGING FINDINGS. EVIDENCE OF ACUTE STROKE: NO. Pelvis X-Ray 12/20/18 14:52 IMPRESSION: No acute displaced fracture. If there is clinical concern for a sacrococcygeal injury, recommend lateral view of the sacrum and coccyx Cervical Spine X-Ray 12/23/18 11:49 IMPRESSION: Limited negative study Chest X-Ray 12/23/18 11:49 IMPRESSION: NO ACUTE RADIOGRAPHIC FINDING IN THE CHEST. Assessment & Plan - Diagnosis (1) Rhabdomyolysis Qualifiers: Rhabdomyolysis type: non-traumatic Qualified Code(s): M62.82 - Rhabdomyolysis Is this a current diagnosis for this admission?: Yes Plan: Likely related to a recent fall. She received a liter of IV bolus in the ER. Improving. CK continue to trend down. Will continue IV fluids. 3/: Decrease IV fluids to 50 cc/hr from 150 cc/hr. (2) Paranoid schizophrenia Is this a current diagnosis for this admission?: Yes Plan: Patient has a very flat affect. When asked if she's aware of the unusual change in her demeanor noted by [facility], she nods and says "it's just too much mental stress". She is not able to expound on it when prompted. She denies recent physical or sexual assault being homeless. Will follow up on psych about PO maintenance medications for her schizophrenia or if she needs to be restarted on a maintenance regimen. 12/22: Noted psych recommendations for her home meds. 12/24: Continue PO haldol and cogentin. (3) Transaminitis Is this a current diagnosis for this admission?: Yes Plan: Improving. Likely related to rhabdo. (4) Hypokalemia Is this a current diagnosis for this admission?: Yes Plan: Resolved. - Time Time Spent with patient: 25-34 minutes
[2018-12-24] MEDS: BENZTROPINE MESYLATE 1 MG TABLET PO SCH (21:39)
[2018-12-25] MEDS: CIPROFLOXACIN HCL 0.3% OPH SOLN 2.5 ML OS SCH ×5 (00:39→23:15)
[2018-12-25 04:43] LABS: ABSOLUTE LYMPHOCYTES (AUTO) 1.7 10^3/uL (0.5-4.7); ABSOLUTE MONOCYTES (AUTO) 0.4 10^3/uL (0.1-1.4); ABSOLUTE NEUT (AUTO) 2.4 10^3/uL (1.7-8.2); BASOPHILS % (AUTO) 0.3 % (0-2); HEMATOCRIT 35.6 % (36.0-47.0); HEMOGLOBIN 12.4 g/dL (12.0-15.5); LYMPHOCYTES % (AUTO) 38.2 % (13-45); MEAN CORPUSCULAR HEMOGLOBIN 31.9 pg (27.0-33.4); MEAN CORPUSCULAR HGB CONC 34.9 g/dL (32.0-36.0); MEAN CORPUSCULAR VOLUME 91 fl (80-97); MONOCYTES % (AUTO) 7.7 % (3-13); PLATELET COUNT 242 10^3/uL (150-450); RED CELL DISTRIBUTION WIDTH 13.1 % (11.5-14.0); SEGMENTED NEUTROPHILS % (AUTO) 52.8 % (42-78); TOTAL CELLS COUNTED % (AUTO) 100 %; WHITE BLOOD COUNT 4.6 10^3/uL (4.0-10.5)
[2018-12-25 05:01] LABS: ANION GAP 5 (5-19)
[2018-12-25 05:14] LABS: ALANINE AMINOTRANSFERASE 64 U/L (9-52); ALBUMIN 3.7 g/dL (3.5-5.0); ALKALINE PHOSPHATASE 47 U/L (38-126); ASPARTATE AMINO TRANSFERASE 39 U/L (14-36); BILIRUBIN,DIRECT 0.2 mg/dL (0.0-0.4); BILIRUBIN,TOTAL 0.2 mg/dL (0.2-1.3); BLOOD UREA NITROGEN 8 mg/dL (7-20); CALCIUM 9.4 mg/dL (8.4-10.2); CARBON DIOXIDE 32 mmol/L (22-30); CHLORIDE 104 mmol/L (98-107); CREATINE KINASE 412 U/L (30-135); GLUCOSE 102 mg/dL (75-110); POTASSIUM 3.9 mmol/L (3.6-5.0)
[2018-12-25] MEDS: HALOPERIDOL 5 MG TABLET PO SCH ×2 (09:31→22:24)
--- NOTE | 2018-12-25 12:13 | PDOC PROGRESS REPORT ---
Subjective Progress Note for:: 12/25/18 Subjective:: TRINA PERRY is a 42 year old female with a PMH of paranoid schizophrenia and homelessness ([place]) who was brought in by [facility] due to being "not her usual self". Reportedly, [facility] is familiar with patient as they always see her in the street and they noticed she was "not acting like her usual self". There is no further elaboration on this. Head CT and UDS were negative. In the ER, her work-up was only remarkably elevated CK. Hospitalist service was called to admit her for OBS for IV fluid hydration and need for further psych eval. 12/21: She says she feels a little better today. CK has improved this morning. She continues to have a very flat affect. 12/22: No acute event overnight. CK continue to trend down with IV fluids. 12/23: She complains of neck and generalized back pain this morning as well as burning on the left eye which does appear slightly hyperemic. CK continue to trend down. She was evaluated by PT who has recommended ambulation with staff assistance. 12/25: No acute event overnight. Left conjunctival erythrma has resolved. Discharge planning is coordinating with Nicole from [facility] for final dispostion/placement. Reason For Visit: RHABDOMYOLYSIS Physical Exam Vital Signs: Temp Pulse Resp BP Pulse Ox 97.3 F 71 16 119/83 98 12/25/18 07:15 12/25/18 07:15 12/25/18 07:15 12/25/18 07:15 12/25/18 07:15 Intake & Output 12/24/18 12/25/18 12/26/18 06:59 06:59 06:59 Intake Total 4286 2074 Balance 4286 2074 Weight 141 lb 15.643 oz 150 lb 2.157 oz General appearance: PRESENT: no acute distress, well-developed, well-nourished Head exam: PRESENT: atraumatic, normocephalic Eye exam: PRESENT: conjunctiva pink, EOMI, PERRLA. ABSENT: scleral icterus Ear exam: PRESENT: normal external ear exam Mouth exam: PRESENT: moist, tongue midline Neck exam: ABSENT: carotid bruit, JVD, lymphadenopathy, thyromegaly Respiratory exam: PRESENT: clear to auscultation aileen. ABSENT: rales, rhonchi, wheezes Pulses: PRESENT: normal dorsalis pedis pul GI/Abdominal exam: PRESENT: normal bowel sounds, soft. ABSENT: distended, guarding, mass, organolmegaly, rebound, tenderness Rectal exam: PRESENT: deferred Neurological exam: PRESENT: alert, awake, oriented to person, oriented to place, oriented to time, oriented to situation, CN II-XII grossly intact. ABSENT: motor sensory deficit Psychiatric exam: PRESENT: flat affect Results Laboratory Results: 12/25/18 04:17 12/25/18 04:17 12/25/18 12/25/18 04:17 04:17 WBC 4.6 RBC 3.90 Hgb 12.4 Hct 35.6 L MCV 91 MCH 31.9 MCHC 34.9 RDW 13.1 Plt Count 242 Seg Neutrophils % 52.8 Lymphocytes % 38.2 Monocytes % 7.7 Eosinophils % 1.0 Basophils % 0.3 Absolute Neutrophils 2.4 Absolute Lymphocytes 1.7 Absolute Monocytes 0.4 Absolute Eosinophils 0.0 Absolute Basophils 0.0 Sodium 141.0 Potassium 3.9 Chloride 104 Carbon Dioxide 32 H Anion Gap 5 BUN 8 Creatinine 0.62 Est GFR ( Amer) > 60 Est GFR (Non-Af Amer) > 60 Glucose 102 Calcium 9.4 Total Bilirubin 0.2 AST 39 H ALT 64 H Alkaline Phosphatase 47 Total Protein 6.0 L Albumin 3.7 12/20/18 12/21/18 12/21/18 11:06 06:57 06:57 Creatine Kinase 51112 H 9200 H CK-MB (CK-2) 12.40 H 12/22/18 12/23/18 12/25/18 04:20 04:54 04:17 Creatine Kinase 3075 H 1256 H 412 H CK-MB (CK-2) Impressions: Head CT 12/20/18 11:33 IMPRESSION: NO ACUTE INTRACRANIAL IMAGING FINDINGS. EVIDENCE OF ACUTE STROKE: NO. Pelvis X-Ray 12/20/18 14:52 IMPRESSION: No acute displaced fracture. If there is clinical concern for a sacrococcygeal injury, recommend lateral view of the sacrum and coccyx Cervical Spine X-Ray 12/23/18 11:49 IMPRESSION: Limited negative study Chest X-Ray 12/23/18 11:49 IMPRESSION: NO ACUTE RADIOGRAPHIC FINDING IN THE CHEST. Assessment & Plan - Diagnosis (1) Rhabdomyolysis Qualifiers: Rhabdomyolysis type: non-traumatic Qualified Code(s): M62.82 - Rhabdomyolysis Is this a current diagnosis for this admission?: Yes Plan: Likely related to a recent fall. She received a liter of IV bolus in the ER. Improving. CK continue to trend down. Will continue IV fluids. 12/24: Decrease IV fluids to 50 cc/hr from 150 cc/hr. (2) Paranoid schizophrenia Is this a current diagnosis for this admission?: Yes Plan: Patient has a very flat affect. When asked if she's aware of the unusual change in her demeanor noted by [facility], she nods and says "it's just too much mental stress". She is not able to expound on it when prompted. She denies recent physical or sexual assault being homeless. Will follow up on psych about PO maintenance medications for her schizophrenia or if she needs to be restarted on a maintenance regimen. 12/22: Noted psych recommendations for her home meds. 12/25: Continue PO haldol and cogentin. (3) Transaminitis Is this a current diagnosis for this admission?: Yes Plan: Improving. Likely related to rhabdo. (4) Hypokalemia Is this a current diagnosis for this admission?: Yes Plan: Resolved. - Time Time Spent with patient: 25-34 minutes
[2018-12-25] MEDS: NORMAL SALINE 1000 ML 1,000 ML IV PRN (16:49)
[2018-12-25] MEDS: BENZTROPINE MESYLATE 1 MG TABLET PO SCH (22:24)
[2018-12-26] MEDS: CIPROFLOXACIN HCL 0.3% OPH SOLN 2.5 ML OS SCH ×3 (06:17→17:16)
[2018-12-26] MEDS: HALOPERIDOL 5 MG TABLET PO SCH ×2 (10:31→21:30)
--- NOTE | 2018-12-26 15:42 | PDOC PROGRESS REPORT ---
Subjective Progress Note for:: 12/26/18 Subjective:: TRINA PERRY is a 42 year old female with a PMH of paranoid schizophrenia and homelessness ([place]) who was brought in by [facility] due to being "not her usual self". Reportedly, [facility] is familiar with patient as they always see her in the street and they noticed she was "not acting like her usual self". There is no further elaboration on this. Head CT and UDS were negative. In the ER, her work-up was only remarkably elevated CK. Hospitalist service was called to admit her for OBS for IV fluid hydration and need for further psych eval. 12/21: She says she feels a little better today. CK has improved this morning. She continues to have a very flat affect. 12/22: No acute event overnight. CK continue to trend down with IV fluids. 12/23: She complains of neck and generalized back pain this morning as well as burning on the left eye which does appear slightly hyperemic. CK continue to trend down. She was evaluated by PT who has recommended ambulation with staff assistance. 12/25: Left conjunctival erythema has resolved. 12/26: No acute event overnight. Discharge planning will reach out to Nicole from [facility] again today for final dispostion/placement. Reason For Visit: RHABDOMYOLYSIS Physical Exam Vital Signs: Temp Pulse Resp BP Pulse Ox 97.5 F 79 16 99/78 L 97 12/26/18 08:48 12/26/18 08:48 12/26/18 08:48 12/26/18 08:48 12/26/18 08:48 Intake & Output 12/25/18 12/26/18 12/27/18 06:59 06:59 06:59 Intake Total 2073 1962 999 Balance 2073 1962 999 Weight 150 lb 2.157 oz 150 lb 2.157 oz General appearance: PRESENT: no acute distress, well-developed, well-nourished Head exam: PRESENT: atraumatic, normocephalic Eye exam: PRESENT: conjunctiva pink, EOMI, PERRLA. ABSENT: scleral icterus Ear exam: PRESENT: normal external ear exam Mouth exam: PRESENT: moist, tongue midline Neck exam: ABSENT: carotid bruit, JVD, lymphadenopathy, thyromegaly Respiratory exam: PRESENT: clear to auscultation aileen. ABSENT: rales, rhonchi, wheezes Cardiovascular exam: PRESENT: RRR. ABSENT: diastolic murmur, rubs, systolic murmur Pulses: PRESENT: normal dorsalis pedis pul GI/Abdominal exam: PRESENT: normal bowel sounds, soft. ABSENT: distended, guarding, mass, organolmegaly, rebound, tenderness Rectal exam: PRESENT: deferred Neurological exam: PRESENT: alert, awake, oriented to person, oriented to place, oriented to time, oriented to situation, CN II-XII grossly intact. ABSENT: motor sensory deficit Results Laboratory Results: 12/25/18 04:17 12/25/18 04:17 12/20/18 12/21/18 12/21/18 11:06 06:57 06:57 Creatine Kinase 29153 H 9200 H CK-MB (CK-2) 12.40 H 12/22/18 12/23/18 12/25/18 04:20 04:54 04:17 Creatine Kinase 3075 H 1256 H 412 H CK-MB (CK-2) Impressions: Head CT 12/20/18 11:33 IMPRESSION: NO ACUTE INTRACRANIAL IMAGING FINDINGS. EVIDENCE OF ACUTE STROKE: NO. Pelvis X-Ray 12/20/18 14:52 IMPRESSION: No acute displaced fracture. If there is clinical concern for a sacrococcygeal injury, recommend lateral view of the sacrum and coccyx Cervical Spine X-Ray 12/23/18 11:49 IMPRESSION: Limited negative study Chest X-Ray 12/23/18 11:49 IMPRESSION: NO ACUTE RADIOGRAPHIC FINDING IN THE CHEST. Assessment & Plan - Diagnosis (1) Rhabdomyolysis Qualifiers: Rhabdomyolysis type: non-traumatic Qualified Code(s): M62.82 - Rhabdomyolysis Is this a current diagnosis for this admission?: Yes Plan: Likely related to a recent fall. She received a liter of IV bolus in the ER. Improving. CK continue to trend down. Will continue IV fluids. 3/2: Decrease IV fluids to 50 cc/hr from 150 cc/hr. 3/4: DC IV fluids today. (2) Paranoid schizophrenia Is this a current diagnosis for this admission?: Yes Plan: Patient has a very flat affect. When asked if she's aware of the unusual change in her demeanor noted by [facility], she nods and says "it's just too much mental stress". She is not able to expound on it when prompted. She denies recent physical or sexual assault being homeless. Will follow up on psych about PO maintenance medications for her schizophrenia or if she needs to be restarted on a maintenance regimen. 12/22: Noted psych recommendations for her home meds. Start Haldol PO. 12/25: Continue PO haldol and cogentin. (3) Transaminitis Is this a current diagnosis for this admission?: Yes Plan: Improving. Likely related to rhabdo. (4) Hypokalemia Is this a current diagnosis for this admission?: Yes Plan: Resolved. - Time Time Spent with patient: 15-24 minutes
[2018-12-26] MEDS: BENZTROPINE MESYLATE 1 MG TABLET PO SCH (21:30)
[2018-12-27] MEDS: CIPROFLOXACIN HCL 0.3% OPH SOLN 2.5 ML OS SCH ×4 (00:56→18:40)
[2018-12-27] MEDS: HALOPERIDOL 5 MG TABLET PO SCH ×2 (10:22→21:06)
--- NOTE | 2018-12-27 16:24 | PDOC PROGRESS REPORT ---
Subjective Progress Note for:: 12/27/18 Subjective:: TRINA PERRY is a 42 year old female with a PMH of paranoid schizophrenia and homelessness (l[place] a [place]) who was brought in by [facility] due to being "not her usual self". Reportedly, [facility] is familiar with patient as they always see her in the street and they noticed she was "not acting like her usual self". There was no further elaboration on this. Head CT and UDS were negative. In the ER, her work-up was only (+) for remarkably elevated CK. Hospitalist service was called to admit her for OBS for rhabdomyolysis and further psych evaluation. Patient was seen this morning on rounds, she is resting comfortably in bed on room air. The patient has some complaints of paranoia today, requesting nursing staff to explain in detail her kidney function and laboratory results. Patient also anxious regarding multidisciplinary rounds occurring outside of her room. Discharge planning working closely with this case, awaiting [facility] for final disposition/placement. CK remains elevated, will continue IVF despite patient tolerating PO diet. Reason For Visit: RHABDOMYOLYSIS Physical Exam Vital Signs: Temp Pulse Resp BP Pulse Ox 97.8 F 72 16 124/60 98 12/26/18 23:01 12/26/18 23:01 12/26/18 23:01 12/26/18 23:01 12/26/18 23:01 Intake & Output 12/26/18 12/27/18 12/28/18 06:59 06:59 06:59 Intake Total 1962 1240 Balance 1962 1240 Weight 68.1 kg 68.1 kg General appearance: PRESENT: no acute distress, well-developed, well-nourished Head exam: PRESENT: atraumatic Eye exam: PRESENT: conjunctiva pink, PERRLA Mouth exam: PRESENT: moist, tongue midline Neck exam: PRESENT: full ROM Respiratory exam: PRESENT: clear to auscultation aileen, symmetrical, unlabored Cardiovascular exam: PRESENT: RRR Pulses: PRESENT: normal radial pulses, normal dorsalis pedis pul Vascular exam: PRESENT: normal capillary refill GI/Abdominal exam: PRESENT: soft. ABSENT: distended, tenderness Rectal exam: PRESENT: deferred Extremities exam: PRESENT: full ROM Musculoskeletal exam: PRESENT: full ROM Neurological exam: PRESENT: alert, awake, oriented to person, oriented to place, oriented to time, oriented to situation Psychiatric exam: PRESENT: anxious Skin exam: PRESENT: dry, intact, normal color Results Laboratory Results: 12/25/18 04:17 12/25/18 04:17 12/20/18 12/21/18 12/21/18 11:06 06:57 06:57 Creatine Kinase 13958 H 9200 H CK-MB (CK-2) 12.40 H 12/22/18 12/23/18 12/25/18 04:20 04:54 04:17 Creatine Kinase 3075 H 1256 H 412 H CK-MB (CK-2) Impressions: Head CT 12/20/18 11:33 IMPRESSION: NO ACUTE INTRACRANIAL IMAGING FINDINGS. EVIDENCE OF ACUTE STROKE: NO. Pelvis X-Ray 12/20/18 14:52 IMPRESSION: No acute displaced fracture. If there is clinical concern for a sacrococcygeal injury, recommend lateral view of the sacrum and coccyx Cervical Spine X-Ray 12/23/18 11:49 IMPRESSION: Limited negative study Chest X-Ray 12/23/18 11:49 IMPRESSION: NO ACUTE RADIOGRAPHIC FINDING IN THE CHEST. Status: Imported from PACS Assessment & Plan - Diagnosis (1) Rhabdomyolysis Qualifiers: Rhabdomyolysis type: non-traumatic Qualified Code(s): M62.82 - Rhabdomyolysis Is this a current diagnosis for this admission?: Yes Plan: Improving. CK continuing to trend down, but still remains elevated Continue IVF despite patient being able to tolerate p.o. intake (2) Paranoid schizophrenia Is this a current diagnosis for this admission?: Yes Plan: [facility] paranoid schizophrenia Scheduled Cogentin and Haldol As needed Thorazine (3) Transaminitis Is this a current diagnosis for this admission?: Yes Plan: Dramatic improvement Secondary to rhabdomyolysis Continue daily chemistries (4) Hypokalemia Is this a current diagnosis for this admission?: Yes Plan: Resolved (5) Homeless Is this a current diagnosis for this admission?: Yes Plan: Patient without domicile Known to [facility] Discharge planning aware, attempting to find placement or send back to [place] with family - Time Time Spent with patient: 15-24 minutes Medications reviewed and adjusted accordingly: Yes Anticipated discharge: Home Within: within 36 hours - Inpatient Certification Based on my medical assessment, after consideration of the patient's comorbidities, presenting symptoms, or acuity I expect that the services needed warrant INPATIENT care.: Yes I certify that my determination is in accordance with my understanding of Medicare's requirements for reasonable and necessary INPATIENT services [42 CFR 412.3e].: Yes Medical Necessity: Risk of Complication if Not Cared For in Hospital
[2018-12-27] MEDS: BENZTROPINE MESYLATE 1 MG TABLET PO SCH (21:06)
[2018-12-28] MEDS: CIPROFLOXACIN HCL 0.3% OPH SOLN 2.5 ML OS SCH ×4 (00:27→17:18)
[2018-12-28] MEDS: HALOPERIDOL 5 MG TABLET PO SCH ×2 (11:03→21:24)
--- NOTE | 2018-12-28 16:10 | PDOC PROGRESS REPORT ---
Subjective Progress Note for:: 12/28/18 Subjective:: TRINA PERRY is a 42 year old female with a PMH of paranoid schizophrenia and homelessness (l[place] a [place]) who was brought in by [facility] due to being "not her usual self". Reportedly, [facility] is familiar with patient as they always see her in the street and they noticed she was "not acting like her usual self". There was no further elaboration on this. Head CT and UDS were negative. In the ER, her work-up was only (+) for remarkably elevated CK. Hospitalist service was called to admit her for OBS for rhabdomyolysis and further psych evaluation. Patient was seen this morning on rounds, she is resting comfortably in bed on room air. She is complaining of constipation. She does not want to take medications because she is afraid she will 'make a mess.' Offered Prune juice and the patient replied, 'please don't force me. I want it to be my choice.' She remains very paranoid, requesting extensive explanation regarding treatment. Discharge planning working closely with this case, awaiting [facility] for final disposition/placement. CK normalized, d/c IVF today. Reason For Visit: RHABDOMYOLYSIS Physical Exam Vital Signs: Temp Pulse Resp BP Pulse Ox 97.9 F 71 16 114/74 97 12/28/18 12:00 12/28/18 12:00 12/28/18 12:00 12/28/18 12:00 12/28/18 12:00 Intake & Output 12/27/18 12/28/18 12/29/18 06:59 06:59 06:59 Intake Total 1240 1023 Balance 1240 1023 Weight 68.1 kg 68.1 kg General appearance: PRESENT: no acute distress, well-developed, well-nourished Eye exam: PRESENT: conjunctiva pink, PERRLA Mouth exam: PRESENT: moist, tongue midline Neck exam: PRESENT: full ROM Respiratory exam: PRESENT: clear to auscultation aileen, symmetrical, unlabored Cardiovascular exam: PRESENT: RRR Pulses: PRESENT: normal radial pulses, normal dorsalis pedis pul Vascular exam: PRESENT: normal capillary refill GI/Abdominal exam: PRESENT: distended, soft, tenderness Rectal exam: PRESENT: deferred Extremities exam: PRESENT: full ROM Musculoskeletal exam: PRESENT: ambulatory, full ROM Neurological exam: PRESENT: alert, awake, oriented to person, oriented to place, oriented to time, oriented to situation Psychiatric exam: PRESENT: unusual affect Skin exam: PRESENT: dry, intact, normal color Results Laboratory Results: 12/25/18 04:17 12/25/18 04:17 12/20/18 12/21/18 12/21/18 11:06 06:57 06:57 Creatine Kinase 04619 H 9200 H CK-MB (CK-2) 12.40 H 12/22/18 12/23/18 12/25/18 04:20 04:54 04:17 Creatine Kinase 3075 H 1256 H 412 H CK-MB (CK-2) Impressions: Head CT 12/20/18 11:33 IMPRESSION: NO ACUTE INTRACRANIAL IMAGING FINDINGS. EVIDENCE OF ACUTE STROKE: NO. Pelvis X-Ray 12/20/18 14:52 IMPRESSION: No acute displaced fracture. If there is clinical concern for a sacrococcygeal injury, recommend lateral view of the sacrum and coccyx Cervical Spine X-Ray 12/23/18 11:49 IMPRESSION: Limited negative study Chest X-Ray 12/23/18 11:49 IMPRESSION: NO ACUTE RADIOGRAPHIC FINDING IN THE CHEST. Status: Imported from PACS Assessment & Plan - Diagnosis (1) Rhabdomyolysis Qualifiers: Rhabdomyolysis type: non-traumatic Qualified Code(s): M62.82 - Rhabdomyolysis Is this a current diagnosis for this admission?: Yes Plan: Improving. CK under 500 d/c IVF today (2) Paranoid schizophrenia Is this a current diagnosis for this admission?: Yes Plan: [facility] paranoid schizophrenia Scheduled Cogentin and Haldol As needed Thorazine (3) Transaminitis Is this a current diagnosis for this admission?: Yes Plan: Dramatic improvement Secondary to rhabdomyolysis Continue daily chemistries (4) Hypokalemia Is this a current diagnosis for this admission?: Yes Plan: Resolved (5) Homeless Is this a current diagnosis for this admission?: Yes Plan: Patient without domicile Known to [facility] Discharge planning aware, attempting to find placement or send back to [place] with family - Time Time Spent with patient: 15-24 minutes Medications reviewed and adjusted accordingly: Yes Anticipated discharge: Home Within: within 48 hours - Inpatient Certification Based on my medical assessment, after consideration of the patient's comorbidities, presenting symptoms, or acuity I expect that the services needed warrant INPATIENT care.: Yes I certify that my determination is in accordance with my understanding of Medicare's requirements for reasonable and necessary INPATIENT services [42 CFR 412.3e].: Yes Medical Necessity: Risk of Complication if Not Cared For in Hospital - PARANOID SCHIZOPHRENIA
[2018-12-28] MEDS: BENZTROPINE MESYLATE 1 MG TABLET PO SCH (21:25)
[2018-12-29] MEDS: CIPROFLOXACIN HCL 0.3% OPH SOLN 2.5 ML OS SCH ×4 (01:11→18:17)
[2018-12-29] MEDS: HALOPERIDOL 5 MG TABLET PO SCH ×2 (10:13→21:17)
[2018-12-29] MEDS ORDERED: MAGNESIUM HYDROXIDE SUSP 30 ML UDCUP PO PRN (14:26)
[2018-12-29] MEDS ORDERED: BISACODYL 10 MG SUPP.RECT PR PRN (14:27)
--- NOTE | 2018-12-29 15:14 | PDOC PROGRESS REPORT ---
Subjective Progress Note for:: 12/29/18 Subjective:: TRINA PERRY is a 42 year old female with a PMH of paranoid schizophrenia and homelessness ([place] a [place]) who was brought in by [facility] due to being "not her usual self". Reportedly, [facility] is familiar with patient as they always see her in the street and they noticed she was "not acting like her usual self". There was no further elaboration on this. Head CT and UDS were negative. In the ER, her work-up was only (+) for remarkably elevated CK. Hospitalist service was called to admit her for OBS for rhabdomyolysis and further psych evaluation. Patient was seen this morning on rounds, she is resting comfortably in bed on room air. She is complaining of worsening constipation. Prune juice was offered but unclear if she drank the juice. Ordered BID senna/colace and PRN milk of magnesia. Discharge planning working closely with this case, awaiting [facility] for final disposition/placement. dietary worker Nicole Proctor working [facility] to try and find placement. Plan to keep inpatient due to abdominal pain, constipation and awaiting placement Reason For Visit: RHABDOMYOLYSIS Physical Exam Vital Signs: Temp Pulse Resp BP Pulse Ox 97.9 F 72 16 118/79 99 12/29/18 11:16 12/29/18 11:16 12/29/18 11:16 12/29/18 11:16 12/29/18 11:16 Intake & Output 12/28/18 12/29/18 12/30/18 06:59 06:59 06:59 Intake Total 1023 Balance 1023 Weight 68.1 kg General appearance: PRESENT: no acute distress Head exam: PRESENT: atraumatic Eye exam: PRESENT: conjunctiva pink, PERRLA Mouth exam: PRESENT: moist, tongue midline Neck exam: PRESENT: full ROM Respiratory exam: PRESENT: clear to auscultation aileen, symmetrical, unlabored Cardiovascular exam: PRESENT: RRR Pulses: PRESENT: normal radial pulses, normal dorsalis pedis pul Vascular exam: PRESENT: normal capillary refill GI/Abdominal exam: PRESENT: distended - mild, normal bowel sounds, soft, tenderness - lower quadrants Rectal exam: PRESENT: deferred Extremities exam: PRESENT: full ROM. ABSENT: pedal edema Musculoskeletal exam: PRESENT: ambulatory, full ROM Neurological exam: PRESENT: alert, awake, oriented to person, oriented to place, oriented to time, oriented to situation Psychiatric exam: PRESENT: unusual affect Skin exam: PRESENT: dry, intact, normal color Results Laboratory Results: 12/25/18 04:17 12/25/18 04:17 12/20/18 12/21/18 12/21/18 11:06 06:57 06:57 Creatine Kinase 78799 H 9200 H CK-MB (CK-2) 12.40 H 12/22/18 12/23/18 12/25/18 04:20 04:54 04:17 Creatine Kinase 3075 H 1256 H 412 H CK-MB (CK-2) Impressions: Head CT 12/20/18 11:33 IMPRESSION: NO ACUTE INTRACRANIAL IMAGING FINDINGS. EVIDENCE OF ACUTE STROKE: NO. Pelvis X-Ray 12/20/18 14:52 IMPRESSION: No acute displaced fracture. If there is clinical concern for a sacrococcygeal injury, recommend lateral view of the sacrum and coccyx Cervical Spine X-Ray 12/23/18 11:49 IMPRESSION: Limited negative study Chest X-Ray 12/23/18 11:49 IMPRESSION: NO ACUTE RADIOGRAPHIC FINDING IN THE CHEST. Status: Imported from PACS Assessment & Plan - Diagnosis (1) Rhabdomyolysis Qualifiers: Rhabdomyolysis type: non-traumatic Qualified Code(s): M62.82 - Rhabdomyolysis Is this a current diagnosis for this admission?: Yes Plan: Resolved CK under 500 (2) Paranoid schizophrenia Is this a current diagnosis for this admission?: Yes Plan: [facility] paranoid schizophrenia Scheduled Cogentin and Haldol As needed Thorazine (3) Transaminitis Is this a current diagnosis for this admission?: Yes Plan: Dramatic improvement Secondary to rhabdomyolysis Will check BMP in AM (4) Hypokalemia Is this a current diagnosis for this admission?: Yes Plan: Resolved (5) Homeless Is this a current diagnosis for this admission?: Yes Plan: Patient without domicile Known to [facility] Discharge planning aware, attempting to find placement or send back to [place] with family (6) Constipation Qualifiers: Constipation type: slow transit constipation Qualified Code(s): K59.01 - Slow transit constipation Is this a current diagnosis for this admission?: Yes Plan: Secondary to dehydration and slow motility Encourage PO intake BID senna/colace PRN milk of magnesia Prune juice with each meal tray - Time Time Spent with patient: 15-24 minutes Medications reviewed and adjusted accordingly: Yes Anticipated discharge: Home Within: within 72 hours - Inpatient Certification Based on my medical assessment, after consideration of the patient's comorbidities, presenting symptoms, or acuity I expect that the services needed warrant INPATIENT care.: Yes I certify that my determination is in accordance with my understanding of Medicare's requirements for reasonable and necessary INPATIENT services [42 CFR 412.3e].: Yes Medical Necessity: Risk of Complication if Not Cared For in Hospital
[2018-12-29] MEDS ORDERED: MAGNESIUM CITRATE 296 ML BOTTLE PO ONE (16:30)
[2018-12-29] MEDS: SENNOSIDES/DOCUSATE 8.6-50 MG 1 EACH TABLET PO SCH (18:17)
[2018-12-29] MEDS: BENZTROPINE MESYLATE 1 MG TABLET PO SCH (21:17)
[2018-12-30] MEDS: CIPROFLOXACIN HCL 0.3% OPH SOLN 2.5 ML OS SCH ×3 (03:36→17:39)
[2018-12-30] MEDS: SENNOSIDES/DOCUSATE 8.6-50 MG 1 EACH TABLET PO SCH ×2 (09:05→17:40)
[2018-12-30] MEDS: HALOPERIDOL 5 MG TABLET PO SCH ×2 (09:06→21:07)
--- NOTE | 2018-12-30 20:50 | PDOC PROGRESS REPORT ---
Subjective Progress Note for:: 12/30/18 Subjective:: TRINA PERRY is a 42 year old female with a PMH of paranoid schizophrenia and homelessness ([place]) who was brought in by [facility] due to being "not her usual self". Reportedly, [facility] is familiar with patient as they always see her in the street and they noticed she was "not acting like her usual self". There was no further elaboration on this. Head CT and UDS were negative. In the ER, her work-up was only (+) for remarkably elevated CK. Hospitalist service was called to admit her for OBS for rhabdomyolysis and further psych evaluation. Patient was seen this morning on rounds, she is resting comfortably in bed on room air. She is complaining of diarrhea following her aggressive bowel regimen that was started yesterday. Will hold off on any stool softeners and/or motility agents today. Discharge planning working closely with this case, awaiting ACT for final disposition/placement. submarine worker Nicole Proctor working with [facility] staff to try and find placement. Plan to keep inpatient due to abdominal pain, diarrhea and awaiting placement Reason For Visit: RHABDOMYOLYSIS Physical Exam Vital Signs: Temp Pulse Resp BP Pulse Ox 97.7 F 79 16 115/67 98 12/30/18 15:09 12/30/18 15:09 12/30/18 15:09 12/30/18 15:09 12/30/18 15:09 Intake & Output 12/29/18 12/30/18 12/31/18 06:59 06:59 06:59 Intake Total 818 466 Balance 818 466 Weight 66 kg General appearance: PRESENT: no acute distress, well-developed, well-nourished Eye exam: PRESENT: conjunctiva pink, PERRLA Mouth exam: PRESENT: moist, tongue midline Neck exam: PRESENT: full ROM Respiratory exam: PRESENT: symmetrical, unlabored Cardiovascular exam: PRESENT: RRR Pulses: PRESENT: normal radial pulses, normal dorsalis pedis pul GI/Abdominal exam: PRESENT: soft, tenderness - very mild. ABSENT: distended Rectal exam: PRESENT: deferred Extremities exam: PRESENT: full ROM Musculoskeletal exam: PRESENT: ambulatory, full ROM, normal inspection Neurological exam: PRESENT: alert, awake, oriented to person, oriented to place, oriented to time, oriented to situation Psychiatric exam: PRESENT: unusual affect Skin exam: PRESENT: dry, intact, normal color Results Laboratory Results: 12/25/18 04:17 12/25/18 04:17 12/20/18 12/21/18 12/21/18 11:06 06:57 06:57 Creatine Kinase 82044 H 9200 H CK-MB (CK-2) 12.40 H 12/22/18 12/23/18 12/25/18 04:20 04:54 04:17 Creatine Kinase 3075 H 1256 H 412 H CK-MB (CK-2) Impressions: Head CT 12/20/18 11:33 IMPRESSION: NO ACUTE INTRACRANIAL IMAGING FINDINGS. EVIDENCE OF ACUTE STROKE: NO. Pelvis X-Ray 12/20/18 14:52 IMPRESSION: No acute displaced fracture. If there is clinical concern for a sacrococcygeal injury, recommend lateral view of the sacrum and coccyx Cervical Spine X-Ray 12/23/18 11:49 IMPRESSION: Limited negative study Chest X-Ray 12/23/18 11:49 IMPRESSION: NO ACUTE RADIOGRAPHIC FINDING IN THE CHEST. Status: Imported from PACS Assessment & Plan - Diagnosis (1) Rhabdomyolysis Qualifiers: Rhabdomyolysis type: non-traumatic Qualified Code(s): M62.82 - Rhabdomyolysis Is this a current diagnosis for this admission?: Yes Plan: Resolved CK under 500 No longer on continuous IVF (2) Paranoid schizophrenia Is this a current diagnosis for this admission?: Yes Plan: [facility] paranoid schizophrenia Scheduled Cogentin and Haldol As needed Thorazine (3) Transaminitis Is this a current diagnosis for this admission?: Yes Plan: Dramatic improvement Secondary to rhabdomyolysis Will check BMP in AM (4) Hypokalemia Is this a current diagnosis for this admission?: Yes Plan: Resolved (5) Homeless Is this a current diagnosis for this admission?: Yes Plan: Patient without domicile Known to [facility] Discharge planning aware, attempting to find placement or send back to [place] with family (6) Constipation Qualifiers: Constipation type: slow transit constipation Qualified Code(s): K59.01 - Slow transit constipation Is this a current diagnosis for this admission?: Yes Plan: Resolved. Patient now c/o diarrhea due to aggressive bowel regimen Hold all motility agents and stool softeners today - Time Time Spent with patient: 15-24 minutes Medications reviewed and adjusted accordingly: Yes Anticipated discharge: Home - Inpatient Certification Based on my medical assessment, after consideration of the patient's comorbidities, presenting symptoms, or acuity I expect that the services needed warrant INPATIENT care.: Yes I certify that my determination is in accordance with my understanding of Medicare's requirements for reasonable and necessary INPATIENT services [42 CFR 412.3e].: Yes Medical Necessity: Risk of Complication if Not Cared For in Hospital - Plan Summary Plan Summary: DSS WORKER BROUGHT THE PATIENT A CELL PHONE AND BANK CARD TODAY. PATIENT IS STILL WITHOUT IDENTIFICATION. FAMILY IN [place] HAS REACHED OUT TO [employer] IN [place] FOR ASSISTANCE.
[2018-12-30] MEDS: BENZTROPINE MESYLATE 1 MG TABLET PO SCH (21:07)
[2018-12-31 08:19] LABS: HEMATOCRIT 37.3 % (36.0-47.0); HEMOGLOBIN 13.1 g/dL (12.0-15.5); MEAN CORPUSCULAR HGB CONC 35.1 g/dL (32.0-36.0); MEAN CORPUSCULAR VOLUME 91 fl (80-97); PLATELET COUNT 276 10^3/uL (150-450); RED BLOOD COUNT 4.09 10^6/uL (3.72-5.28); RED CELL DISTRIBUTION WIDTH 13.4 % (11.5-14.0); WHITE BLOOD COUNT 4.1 10^3/uL (4.0-10.5)
[2018-12-31 08:37] LABS: ALANINE AMINOTRANSFERASE 34 U/L (9-52); ALBUMIN 4.3 g/dL (3.5-5.0); ALKALINE PHOSPHATASE 46 U/L (38-126); ANION GAP 10 (5-19); ASPARTATE AMINO TRANSFERASE 19 U/L (14-36); BILIRUBIN,DIRECT 0.2 mg/dL (0.0-0.4); BILIRUBIN,TOTAL 0.3 mg/dL (0.2-1.3); BLOOD UREA NITROGEN 12 mg/dL (7-20); CALCIUM 9.8 mg/dL (8.4-10.2); CARBON DIOXIDE 29 mmol/L (22-30); CHLORIDE 98 mmol/L (98-107); GLUCOSE 97 mg/dL (75-110); POTASSIUM 4.5 mmol/L (3.6-5.0); SODIUM 137.1 mmol/L (137-145); TOTAL PROTEIN 6.9 g/dL (6.3-8.2)
[2018-12-31] MEDS: HALOPERIDOL 5 MG TABLET PO SCH ×2 (09:41→21:26)
[2018-12-31] MEDS: SENNOSIDES/DOCUSATE 8.6-50 MG 1 EACH TABLET PO SCH (09:43)
[2018-12-31] MEDS: CHLORPROMAZINE HCL 50 MG TABLET PO PRN (11:10)
[2018-12-31] MEDS: ALPRAZOLAM 0.25 MG TABLET PO PRN ×2 (13:21→19:29)
--- NOTE | 2018-12-31 21:09 | PDOC PROGRESS REPORT ---
Subjective Progress Note for:: 12/31/18 Subjective:: TRINA PERRY is a 42 year old female with a PMH of paranoid schizophrenia and homelessness (l[place] a [place]) who was brought in by [facility] due to being "not her usual self". Reportedly, [facility] is familiar with patient as they always see her in the street and they noticed she was "not acting like her usual self". There was no further elaboration on this. Head CT and UDS were negative. In the ER, her work-up was only (+) for remarkably elevated CK. Hospitalist service was called to admit her for OBS for rhabdomyolysis and further psych evaluation. Her rhabdomyolysis has resolved following aggressive fluid resuscitation. Patient was seen this morning on rounds, she is resting comfortably in bed on room air. She is still complaining of diarrhea following her aggressive bowel regimen that was started 2 days ago. Will hold off on any stool softeners and/or motility agents today. Patient reports she is very anxious today. She is "too anxious to comb" her hair. Patient is already taking Haldol and Thorazine. Added very low dose PRN Xanax. Discharge planning working closely with this case, awaiting ACT for final disposition/placement. jig worker Nicole Proctor working with [facility] staff to try and find placement. Plan to keep inpatient due to diarrhea, anxiety and awaiting placement Reason For Visit: RHABDOMYOLYSIS Physical Exam Vital Signs: Temp Pulse Resp BP Pulse Ox 98.0 F 90 17 117/73 97 12/31/18 15:31 12/31/18 15:31 12/31/18 15:31 12/31/18 15:31 12/31/18 15:31 Intake & Output 12/30/18 12/31/18 01/01/19 06:59 06:59 07:59 Intake Total 818 1066 Balance 818 1066 Weight 66 kg General appearance: PRESENT: well-developed, well-nourished Eye exam: PRESENT: conjunctiva pink, PERRLA Mouth exam: PRESENT: moist, tongue midline Neck exam: PRESENT: full ROM Respiratory exam: PRESENT: clear to auscultation aileen, symmetrical, unlabored Cardiovascular exam: PRESENT: RRR Pulses: PRESENT: normal radial pulses, normal dorsalis pedis pul Vascular exam: PRESENT: normal capillary refill GI/Abdominal exam: PRESENT: distended - very mild, normal bowel sounds, soft. ABSENT: tenderness Rectal exam: PRESENT: deferred Extremities exam: PRESENT: full ROM Musculoskeletal exam: PRESENT: ambulatory, full ROM Neurological exam: PRESENT: alert, awake, oriented to person, oriented to place, oriented to time, oriented to situation Psychiatric exam: PRESENT: appropriate affect Skin exam: PRESENT: dry, intact, normal color Results Laboratory Results: 12/31/18 07:44 12/31/18 07:44 12/31/18 12/31/18 07:44 07:44 WBC 4.1 RBC 4.09 Hgb 13.1 Hct 37.3 MCV 91 MCH 32.0 MCHC 35.1 RDW 13.4 Plt Count 276 Sodium 137.1 Potassium 4.5 Chloride 98 Carbon Dioxide 29 Anion Gap 10 BUN 12 Creatinine 0.54 Est GFR ( Amer) > 60 Est GFR (Non-Af Amer) > 60 Glucose 97 Calcium 9.8 Magnesium 2.3 Total Bilirubin 0.3 AST 19 ALT 34 Alkaline Phosphatase 46 Total Protein 6.9 Albumin 4.3 12/20/18 12/21/18 12/21/18 11:06 06:57 06:57 Creatine Kinase 33792 H 9200 H CK-MB (CK-2) 12.40 H 12/22/18 12/23/18 12/25/18 04:20 04:54 04:17 Creatine Kinase 3075 H 1256 H 412 H CK-MB (CK-2) Impressions: Head CT 12/20/18 11:33 IMPRESSION: NO ACUTE INTRACRANIAL IMAGING FINDINGS. EVIDENCE OF ACUTE STROKE: NO. Pelvis X-Ray 12/20/18 14:52 IMPRESSION: No acute displaced fracture. If there is clinical concern for a sacrococcygeal injury, recommend lateral view of the sacrum and coccyx Cervical Spine X-Ray 12/23/18 11:49 IMPRESSION: Limited negative study Chest X-Ray 12/23/18 11:49 IMPRESSION: NO ACUTE RADIOGRAPHIC FINDING IN THE CHEST. Status: Imported from PACS Assessment & Plan - Diagnosis (1) Rhabdomyolysis Qualifiers: Rhabdomyolysis type: non-traumatic Qualified Code(s): M62.82 - Rhabdomyolysis Is this a current diagnosis for this admission?: Yes Plan: Resolved CK under 500 No longer on continuous IVF (2) Paranoid schizophrenia Is this a current diagnosis for this admission?: Yes Plan: [facility] paranoid schizophrenia Scheduled Cogentin and Haldol As needed Thorazine (3) Transaminitis Is this a current diagnosis for this admission?: Yes Plan: Dramatic improvement Secondary to rhabdomyolysis Will check BMP in AM (4) Hypokalemia Is this a current diagnosis for this admission?: Yes Plan: Resolved (5) Homeless Is this a current diagnosis for this admission?: Yes Plan: Patient without domicile Known to [facility] Discharge planning aware, attempting to find placement or send back to [facility] with family (6) Constipation Qualifiers: Constipation type: slow transit constipation Qualified Code(s): K59.01 - Slow transit constipation Is this a current diagnosis for this admission?: Yes Plan: Resolved. Patient now c/o diarrhea due to aggressive bowel regimen Hold all motility agents and stool softeners today (7) Anxiety Is this a current diagnosis for this admission?: Yes Plan: Patient with a [facility] mental illness Reports significant anxiety Claims she is too anxious to comb her own hair Low dose (0.125 mg) Xanax PRN - Time Time Spent with patient: 15-24 minutes Medications reviewed and adjusted accordingly: Yes Anticipated discharge: Home - Inpatient Certification Based on my medical assessment, after consideration of the patient's comorbiditi es, presenting symptoms, or acuity I expect that the services needed warrant INPATIENT care.: Yes I certify that my determination is in accordance with my understanding of [facility]'s requirements for reasonable and necessary INPATIENT services [42 CFR 412.3e].: Yes Medical Necessity: Risk of Complication if Not Cared For in Hospital
[2018-12-31] MEDS: BENZTROPINE MESYLATE 1 MG TABLET PO SCH (21:26)
[2019-01-01] MEDS: SENNOSIDES/DOCUSATE 8.6-50 MG 1 EACH TABLET PO SCH ×3 (08:11→17:14)
[2019-01-01] MEDS: HALOPERIDOL 5 MG TABLET PO SCH ×2 (09:35→23:33)
[2019-01-01] MEDS: ALPRAZOLAM 0.25 MG TABLET PO PRN ×2 (11:05→18:16)
[2019-01-01] MEDS: BENZTROPINE MESYLATE 1 MG TABLET PO SCH (23:32)
--- NOTE | 2019-01-02 05:25 | PDOC PROGRESS REPORT ---
Subjective Progress Note for:: 01/01/19 Subjective:: TRINA PERRY is a 42 year old female with a PMH of paranoid schizophrenia and homelessness (l[place] a [place]) who was brought in by [facility] due to being "not her usual self". Reportedly, [facility] is familiar with patient as they always see her in the street and they noticed she was "not acting like her usual self". There was no further elaboration on this. Head CT and UDS were negative. In the ER, her work-up was only (+) for remarkably elevated CK. Hospitalist service was called to admit her for OBS for rhabdomyolysis and further psych evaluation. Her rhabdomyolysis has resolved following aggressive fluid resuscitation. Patient was seen this morning on rounds, she is resting comfortably in bed on room air. She still complains of significant anxiety. Nursing staff reports the PRN xanax has helped with her symptoms. Discharge planning working closely with this case, awaiting ACT for final disposition/placement. lithographic general worker Nicole Proctor working with [facility] staff to try and find placement. Plan to keep inpatient due to anxiety, mental health and awaiting placement Reason For Visit: RHABDOMYOLYSIS Physical Exam Vital Signs: Temp Pulse Resp BP Pulse Ox 98.1 F 82 17 111/69 97 01/01/19 19:56 01/01/19 19:56 01/01/19 19:56 01/01/19 19:56 01/01/19 19:56 Intake & Output 12/31/18 01/01/19 01/02/19 05:59 06:59 06:59 Intake Total 400 Balance 400 Weight General appearance: PRESENT: no acute distress, well-developed, well-nourished Head exam: PRESENT: atraumatic, normocephalic Eye exam: PRESENT: conjunctiva pink, EOMI, PERRLA. ABSENT: scleral icterus Ear exam: PRESENT: normal external ear exam Mouth exam: PRESENT: moist, tongue midline Neck exam: ABSENT: carotid bruit, JVD, lymphadenopathy, thyromegaly Respiratory exam: PRESENT: clear to auscultation aileen. ABSENT: rales, rhonchi, wheezes Cardiovascular exam: PRESENT: RRR. ABSENT: diastolic murmur, rubs, systolic murmur Pulses: PRESENT: normal dorsalis pedis pul Vascular exam: PRESENT: normal capillary refill GI/Abdominal exam: PRESENT: normal bowel sounds, soft. ABSENT: distended, guarding, mass, organolmegaly, rebound, tenderness Rectal exam: PRESENT: deferred Extremities exam: PRESENT: full ROM. ABSENT: calf tenderness, clubbing, pedal edema Neurological exam: PRESENT: alert, awake, oriented to person, oriented to place, oriented to time, oriented to situation. ABSENT: motor sensory deficit Psychiatric exam: PRESENT: appropriate affect, normal mood. ABSENT: homicidal i deation, suicidal ideation Skin exam: PRESENT: dry, intact, warm. ABSENT: cyanosis, rash Results Laboratory Results: 12/31/18 07:44 12/31/18 07:44 12/20/18 12/21/18 12/21/18 11:06 06:57 06:57 Creatine Kinase 19475 H 9200 H CK-MB (CK-2) 12.40 H 12/22/18 12/23/18 12/25/18 04:20 04:54 04:17 Creatine Kinase 3075 H 1256 H 412 H CK-MB (CK-2) Impressions: Head CT 12/20/18 11:33 IMPRESSION: NO ACUTE INTRACRANIAL IMAGING FINDINGS. EVIDENCE OF ACUTE STROKE: NO. Pelvis X-Ray 12/20/18 14:52 IMPRESSION: No acute displaced fracture. If there is clinical concern for a sacrococcygeal injury, recommend lateral view of the sacrum and coccyx Cervical Spine X-Ray 12/23/18 11:49 IMPRESSION: Limited negative study Chest X-Ray 12/23/18 11:49 IMPRESSION: NO ACUTE RADIOGRAPHIC FINDING IN THE CHEST. Status: Imported from PACS Assessment & Plan - Diagnosis (1) Rhabdomyolysis Qualifiers: Rhabdomyolysis type: non-traumatic Qualified Code(s): M62.82 - R habdomyolysis Is this a current diagnosis for this admission?: Yes Plan: Resolved CK under 500 No longer on continuous IVF (2) Paranoid schizophrenia Is this a current diagnosis for this admission?: Yes Plan: H paranoid schizophrenia Scheduled Cogentin and Haldol As needed Thorazine (3) Transaminitis Is this a current diagnosis for this admission?: Yes Plan: Dramatic improvement Secondary to rhabdomyolysis Will check BMP in AM (4) Hypokalemia Is this a current diagnosis for this admission?: Yes Plan: Resolved (5) Homeless Is this a current diagnosis for this admission?: Yes Plan: Patient without domicile Known to [facility] Discharge planning aware, attempting to find placement or send back to [place] with family (6) Constipation Qualifiers: Constipation type: slow transit constipation Qualified Code(s): K59.01 - Slow transit constipation Is this a current diagnosis for this admission?: Yes Plan: Resolved. Patient now c/o diarrhea due to aggressive bowel regimen Hold all motility agents and stool softeners today (7) Anxiety Is this a current diagnosis for this admission?: Yes Plan: Patient with a [facility] mental illness Reports significant anxiety Low dose (0.125 mg) Xanax PRN - Time Time Spent with patient: 15-24 minutes Medications reviewed and adjusted accordingly: Yes Anticipated discharge: Home - Inpatient Certification Based on my medical assessment, after consideration of the patient's comorbidities, presenting symptoms, or acuity I expect that the services needed warrant INPATIENT care.: Yes I certify that my determination is in accordance with my understanding of Medicare's requirements for reasonable and necessary INPATIENT services [42 CFR 412.3e].: Yes Medical Necessity: Risk of Complication if Not Cared For in Hospital
[2019-01-02] MEDS: SENNOSIDES/DOCUSATE 8.6-50 MG 1 EACH TABLET PO SCH ×2 (10:05→17:41)
[2019-01-02] MEDS: HALOPERIDOL 5 MG TABLET PO SCH ×2 (10:05→23:14)
[2019-01-02] MEDS: ALPRAZOLAM 0.25 MG TABLET PO PRN ×2 (11:47→18:36)
--- NOTE | 2019-01-02 17:32 | PDOC PROGRESS REPORT ---
Subjective Progress Note for:: 01/02/19 Subjective:: TRINA PERRY is a 42 year old female with a PMH of paranoid schizophrenia and homelessness (lives [place] a ditch) who was brought in by [facility] due to being "not her usual self". Reportedly, [facility] is familiar with patient as they always see her in the street and they noticed she was "not acting like her usual self". There was no further elaboration on this. Head CT and UDS were negative. In the ER, her work-up was only (+) for remarkably elevated CK. Hospitalist service was called to admit her for OBS for rhabdomyolysis and further psych evaluation. Her rhabdomyolysis has resolved following aggressive fluid resuscitation. Patient was seen this morning on rounds, she is resting comfortably in bed on room air. The patient is anxious about the possibility of being discharged to the streets. She is currently awaiting the [employer] to bring/send a new green card. Discharge planning working closely with this case, awaiting ACT for final disposition/placement. tar worker Nicole Proctor working with [facility] staff to try and find placement. Plan to keep inpatient due to anxiety, mental health and awaiting placement Reason For Visit: RHABDOMYOLYSIS Physical Exam Vital Signs: Temp Pulse Resp BP Pulse Ox 97.9 F 75 16 105/67 97 01/02/19 11:46 01/02/19 11:46 01/02/19 11:46 01/02/19 11:46 01/02/19 11:46 Intake & Output 01/01/19 01/02/19 01/03/19 06:59 06:59 06:59 Intake Total 600 384 Output Total 800 Balance -200 384 Weight 64.9 kg General appearance: PRESENT: no acute distress, well-developed, well-nourished Head exam: PRESENT: atraumatic, normocephalic Eye exam: PRESENT: conjunctiva pink, EOMI, PERRLA. ABSENT: scleral icterus Ear exam: PRESENT: normal external ear exam Mouth exam: PRESENT: moist, tongue midline Neck exam: ABSENT: carotid bruit, JVD, lymphadenopathy, thyromegaly Respiratory exam: PRESENT: clear to auscultation aileen. ABSENT: rales, rhonchi, wheezes Cardiovascular exam: PRESENT: RRR. ABSENT: diastolic murmur, rubs, systolic murmur Pulses: PRESENT: normal dorsalis pedis pul Vascular exam: PRESENT: normal capillary refill GI/Abdominal exam: PRESENT: normal bowel sounds, soft. ABSENT: distended, guarding, mass, organolmegaly, rebound, tenderness Rectal exam: PRESENT: deferred Extremities exam: PRESENT: full ROM. ABSENT: calf tenderness, clubbing, pedal edema Neurological exam: PRESENT: alert, awake, oriented to person, oriented to place, oriented to time, oriented to situation. ABSENT: motor sensory deficit Psychiatric exam: PRESENT: anxious, flat affect. ABSENT: homicidal ideation, suicidal ideation Skin exam: PRESENT: dry, intact, warm. ABSENT: cyanosis, rash Results Laboratory Results: 12/31/18 07:44 12/31/18 07:44 12/20/18 12/21/18 12/21/18 11:06 06:57 06:57 Creatine Kinase 23554 H 9200 H CK-MB (CK-2) 12.40 H 12/22/18 12/23/18 12/25/18 04:20 04:54 04:17 Creatine Kinase 3075 H 1256 H 412 H CK-MB (CK-2) Impressions: Head CT 12/20/18 11:33 IMPRESSION: NO ACUTE INTRACRANIAL IMAGING FINDINGS. EVIDENCE OF ACUTE STROKE: NO. Pelvis X-Ray 12/20/18 14:52 IMPRESSION: No acute displaced fracture. If there is clinical concern for a sacrococcygeal injury, recommend lateral view of the sacrum and coccyx Cervical Spine X-Ray 12/23/18 11:49 IMPRESSION: Limited negative study Chest X-Ray 12/23/18 11:49 IMPRESSION: NO ACUTE RADIOGRAPHIC FINDING IN THE CHEST. Status: Imported from PACS Assessment & Plan - Diagnosis (1) Rhabdomyolysis Qualifiers: Rhabdomyolysis type: non-traumatic Qualified Code(s): M62.82 - Rhabdomyolysis Is this a current diagnosis for this admission?: Yes Plan: Resolved CK under 500 No longer on continuous IVF (2) Paranoid schizophrenia Is this a current diagnosis for this admission?: Yes Plan: H paranoid schizophrenia Scheduled Cogentin and Haldol As needed Thorazine (3) Transaminitis Is this a current diagnosis for this admission?: Yes Plan: Dramatic improvement Secondary to rhabdomyolysis Will check BMP in AM (4) Hypokalemia Is this a current diagnosis for this admission?: Yes Plan: Resolved (5) Homeless Is this a current diagnosis for this admission?: Yes Plan: Patient without domicile Known to [facility] Discharge planning aware, attempting to find placement or send back to [place] with family (6) Constipation Qualifiers: Constipation type: slow transit constipation Qualified Code(s): K59.01 - Slow transit constipation Is this a current diagnosis for this admission?: Yes Plan: Resolved. Patient now c/o diarrhea due to aggressive bowel regimen Hold all motility agents and stool softeners today (7) Anxiety Is this a current diagnosis for this admission?: Yes Plan: Patient with a [facility] mental illness Reports significant anxiety Low dose (0.125 mg) Xanax PRN - Time Time Spent with patient: 15-24 minutes Medications reviewed and adjusted accordingly: Yes Anticipated discharge: Home Within: when bed available - Inpatient Certification Based on my medical assessment, after consideration of the patient's comorbidities, presenting symptoms, or acuity I expect that the services needed warrant INPATIENT care.: Yes I certify that my determination is in accordance with my understanding of Medicare's requirements for reasonable and necessary INPATIENT services [42 CFR 412.3e].: Yes Medical Necessity: Risk of Complication if Not Cared For in Hospital
[2019-01-02] MEDS: BENZTROPINE MESYLATE 1 MG TABLET PO SCH (23:14)
[2019-01-03] MEDS: HALOPERIDOL 5 MG TABLET PO SCH ×2 (09:26→21:01)
[2019-01-03] MEDS: SENNOSIDES/DOCUSATE 8.6-50 MG 1 EACH TABLET PO SCH ×2 (09:27→17:00)
--- NOTE | 2019-01-03 11:13 | PDOC DISCHARGE SUMMARY ---
General - Admit/Disc Date/PCP Admission Date/Primary Care Provider: 12/23/18 14:48 Discharge Date: 01/03/19 - Discharge Diagnosis (1) Anxiety Is this a current diagnosis for this admission?: Yes Summary: Improved; Patient with a [facility] mental illness compounded by social situation of homelessness. Mental health team was consulted; patient is stabilized on Cogentin and Haldol with as needed thorazine. Recommend establishing with a local psychiatrist/mental health provider [facility]. (2) Constipation Is this a current diagnosis for this admission?: Yes Summary: Resolved. (3) Homeless Is this a current diagnosis for this admission?: Yes Summary: Patient without domicile. The patient is now medically stable for discharge, however without disposition. Discharge planning is consulted; working with the patient's [facility] card cutter helper to identify a safe discharge plan/residential placement. (4) Hypokalemia Is this a current diagnosis for this admission?: Yes Summary: Resolved. (5) Paranoid schizophrenia Is this a current diagnosis for this admission?: Yes Summary: H paranoid schizophrenia Patient was evaluated by the mental health service. Medication recommendations are for Haldol 5 mg every 12 hours and Cogentin 1 mg nightly. (6) Rhabdomyolysis Is this a current diagnosis for this admission?: Yes Summary: Resolved. Patient was admitted with a creatinine kinase of 17,858. She was provided IV fluids with downward trend; at last check, CK was 412. (7) Transaminitis Is this a current diagnosis for this admission?: Yes Summary: Improved; secondary to rhabdomyolysis. Physical therapy was consulted; patient is safe for independent ambulation. - Additional Information Resuscitation Status: Full Code Discharge Diet: Regular Discharge Activity: Activity As Tolerated Prescriptions: Benztropine Mesylate [Cogentin 1 mg Tablet] 1 mg PO QHS #30 tablet Chlorpromazine HCl [Thorazine 50 mg Tablet] 50 mg PO Q8HP PRN #90 tablet PRN Reason: Haloperidol [Haldol 5 mg Tablet] 5 mg PO Q12 #60 tablet Home Medications: Benztropine Mesylate [Cogentin 1 mg Tablet] 1 mg PO QHS #30 tablet 01/03/19 Chlorpromazine HCl [Thorazine 50 mg Tablet] 50 mg PO Q8HP PRN #90 tablet 01/03/19 Haloperidol [Haldol 5 mg Tablet] 5 mg PO Q12 #60 tablet 01/03/19 History of Present Illness History of Present Illness: Per H&P by Dr. Costa: TRINA PERRY is a 42 year old female with a PMH of paranoid schizophrenia and homelessness (lives [place] a ditch) who was brought in by [facility] due to being "not her usual self". Reportedly, [facility] is familiar with patient as they always see her in the street and they noticed she was "not acting like her usual self". There is no further elaboration on this. Head CT and UDS were negative. In the ER, her work-up was only remarkably elevated CK. Hospitalist service was called to admit her for OBS for IV fluid hydration and need for further psych eval. Upon encounter, patient has a flat affect. When asked why [facility] brought her in, s he says "it's just too much". When asked if she has delusions or hallucinations, she denies having both. She also denies suicidal or homicidal ideations. She does say she was supposed to be on psych meds but ran out of these medications. She did eventually admit that she fell on her buttocks a few days ago in a ditch. Hospital Course Hospital Course: The patient was brought in by [facility] for unusual activity; found to be in rhabdomyolysis with a CK of 17 K. Mental health services were consulted with recommendations to initiate Haldol and Cogentin with Thorazine as needed for anxiety and agitation. She was provided aggressive IV fluids with resolution of her rhabdomyolysis and dramatic improvement in the transaminitis. She worked with physical therapy and has been approved for independent ambulation; able to walk greater than 200 feet. She is now medically stable for discharge. Unfortunately her social situation has caused her to become homeless. Discharge planning continues to work with the [facility] card cutter helper to find appropriate disposition. She is discharged from the medical service in stable condition. She is provided prescriptions for Haldol 5 mg twice daily, Cogentin 1 mg nightly and Thorazine 50 mg every 8 hours as needed for anxiety and agitation. She is strongly encouraged to establish with a local psychiatrist/mental health provider and primary care provider. She is advised to return to the emergency department as needed for any concerning symptoms. Physical Exam Vital Signs: Temp Pulse Resp BP Pulse Ox 97.8 F 72 17 121/64 98 01/03/19 07:14 01/03/19 07:14 01/03/19 07:14 01/03/19 07:14 01/03/19 07:14 Intake & Output 01/02/19 01/03/19 01/04/19 06:59 06:59 06:59 Intake Total 600 1234 Output Total 800 Balance -200 1234 Weight 64.9 kg 64.9 kg General appearance: PRESENT: no acute distress, cooperative, disheveled, well- developed, well-nourished Head exam: PRESENT: atraumatic, normocephalic Eye exam: PRESENT: conjunctiva pink, EOMI, PERRLA. ABSENT: scleral icterus Ear exam: PRESENT: normal external ear exam Mouth exam: PRESENT: moist, tongue midline Respiratory exam: PRESENT: clear to auscultation aileen, symmetrical, unlabored. ABSENT: rales, rhonchi, wheezes Cardiovascular exam: PRESENT: RRR. ABSENT: diastolic murmur, rubs, systolic murmur Pulses: PRESENT: normal dorsalis pedis pul Vascular exam: PRESENT: normal capillary refill Rectal exam: PRESENT: deferred Extremities exam: PRESENT: full ROM. ABSENT: calf tenderness, clubbing, pedal edema Neurological exam: PRESENT: alert, awake, oriented to person, oriented to place, oriented to time, oriented to situation, CN II-XII grossly intact. ABSENT: motor sensory deficit Psychiatric exam: PRESENT: anxious, flat affect, normal mood. ABSENT: homicidal ideation, suicidal ideation Skin exam: PRESENT: dry, intact, warm. ABSENT: cyanosis, rash Results Laboratory Results: 12/31/18 07:44 12/31/18 07:44 12/20/18 12/21/18 12/21/18 11:06 06:57 06:57 Creatine Kinase 57043 H 9200 H CK-MB (CK-2) 12.40 H 12/22/18 12/23/18 12/25/18 04:20 04:54 04:17 Creatine Kinase 3075 H 1256 H 412 H CK-MB (CK-2) Impressions: Head CT 12/20/18 11:33 IMPRESSION: NO ACUTE INTRACRANIAL IMAGING FINDINGS. EVIDENCE OF ACUTE STROKE: NO. Pelvis X-Ray 12/20/18 14:52 IMPRESSION: No acute displaced fracture. If there is clinical concern for a sacrococcygeal injury, recommend lateral view of the sacrum and coccyx Cervical Spine X-Ray 12/23/18 11:49 IMPRESSION: Limited negative study Chest X-Ray 12/23/18 11:49 IMPRESSION: NO ACUTE RADIOGRAPHIC FINDING IN THE CHEST. Qualifiers - * PATIENT BEING DISCHARGED WITH ANY OF THE FOLLOWING DIAGNOSIS: No Plan Discharge Plan: Discharge to self-care. In-house discharge planning and patient's DSS card cutter helper continuing attempts to find residential placement for patient. Recommend establishing with a local primary care provider for follow-up within 1 week. Patient would also benefit from establishing with a local psychiatrist/mental health provider for continued care. Return to the emergency department as needed for concerning symptoms. Time Spent: Greater than 30 Minutes
[2019-01-03] MEDS: ALPRAZOLAM 0.25 MG TABLET PO PRN (12:34)
[2019-01-03] MEDS: LOPERAMIDE HCL 2 MG CAPSULE PO PRN ×2 (16:14→20:45)
[2019-01-03] MEDS: BENZTROPINE MESYLATE 1 MG TABLET PO SCH (21:01)
[2019-01-04] MEDS: SENNOSIDES/DOCUSATE 8.6-50 MG 1 EACH TABLET PO SCH (09:16)
[2019-01-04] MEDS: LOPERAMIDE HCL 2 MG CAPSULE PO PRN (09:19)
[2019-01-04] MEDS: HALOPERIDOL 5 MG TABLET PO SCH (09:20)
[2019-01-04] MEDS: CHLORPROMAZINE HCL 50 MG TABLET PO PRN (11:09)
[2019-01-04 12:22] VITALS: BP 114/74
== END 2019-01-04 13:34 | disposition home or self-care (01) | DRG 558 ==
LOC: ER 10:54 → EH 14:49 → 5 23:35 → OBSVTOIN 12-23 14:48
PROVIDERS: ADMIT Internal Medicine; ATTEND Internal Medicine
DX: M62.82 Rhabdomyolysis (principal); F20.0 Paranoid schizophrenia; R41.82 Altered mental status, unspecified; R74.0 Nonspecific elevation of levels of transaminase and lactic acid dehydrogenase [LDH]; Z59.0 Homelessness; E87.6 Hypokalemia; K59.01 Slow transit constipation; E86.0 Dehydration; F41.9 Anxiety disorder, unspecified; F17.200 Nicotine dependence, unspecified, uncomplicated; Z91.011 Allergy to milk products; Z91.81 History of falling; Z23 Encounter for immunization
CPT/HCPCS: 36415; 70450; 71045; 72040; 72170; 80048; 80053; 80307; 81001; 81025; 82550; 82553; 83735; 84132; 85025; 85027; 85610; 90471; 90686; 93005; 93010; 96360; 96361; 99285; 99406; G0008; J0515; J3490; J7030

== ENCOUNTER 2019-01-11 10:19 | Emergency (ER) | payer SELFPAY ==
--- NOTE | 2019-01-11 10:30 | PSYCHOLOGICAL NOTE ---
Psych Note - Psych Note Date seen by psych provider: 01/11/19 Time seen by psych provider: 11:05 Psych Note: Reason for Consult: suicidal ideation [facility] via [facility] for suicidal ideation. Patient reports that she is having anxiety and suicidal ideation currently. She is able to identify her trigger was her now has an assistant attorney general and she is feeling very overwhelmed. She did have a DSS an appointment today however confirms she has contacted them to reschedule. Patient still has no contact with her children and has a protection order against her from her . Patient is homeless however is staying at the homeless long term. When asked about any plan of hurting herself she denies having a specific plan then asked to go to [facility]. She continued to disclose that this is the first time she is ever experience having these thoughts. Patient is alert and orientated to person, place, time and circumstance. Mood is euthymic with flat affect. Patient endorses passive suicidal ideation i.e. no plans means or intent. Patient denies homicidal ideation. Patient has a history of auditory hallucinations however currently is not demonstrating any behaviors of responding to internal stimuli i.e. organized and linear thought process. Eye contact is well-maintained. Conversational speech was quiet and difficult to hear at times. Attention and concentration are good. Insight, judgment, impulse control is fair. Behavioral health team was contacted by [facility] of [facility] and was informed the patient did not cancel her appointment today. The patient was scheduled to see her children today for the first time in 6 months. Diagnosis: 295.90 (F20.9) Schizophrenia, Paranoid Type by History Medication recommendations made by the psychiatric medical provider, Dr. Alex MD, includes: Haldol decanoate 100 mg once Haldol 5 mg twice daily Cogentin 1 mg daily Impression\\plan: Patient is recommended for overnight mental health observation. Patient describes passive suicidal ideation i.e. no plans means or intent to clinician however reports sticking herself with a "pin" to attending physician. Patient has a long history of schizophrenia however appears to be currently medication compliant. Patient's presentation is much improved from previous visits. This is the first time the patient ever is expressed thoughts of wanting to harm herself. This appears to be situational in regards to her hus band obtaining an assistant attorney general and ongoing situation of both legal difficulties and not being allowed to have contact with her children per DSS. Patient will be reevaluated. Dr. Coppola was consulted to care management this patient; attending physician agreement with recommendations and disposition.
--- NOTE | 2019-01-11 10:56 | ER Document Report ---
Addendum entered and electronically signed by ZAFAR LIGHT MD 01/12/19 11:03: Discharge - Discharge Clinical Impression: Suicidal ideation Condition: Stable Disposition: HOME, SELF-CARE Additional Instructions: You have been evaluated both medical and behavioral health teams and been deemed appropriate for discharge. You are encouraged to follow-up with outpatient mental health services in the form of therapeutic intervention to build positive coping skills. You are recommended to continue taking your mental health me dications prescribed by her outpatient provider. DEPRESSION: Your evaluation reveals that you have mental depression. While symptoms may be vague, they often include disturbance of sleep, fatigue, loss of appetite, and general loss of interest in life. While depression may be a side effect of drugs, or a reaction to a major change in your life, many cases have no known cause. If depression is acute, and related to a major loss in your life, you can expect it to clear completely with time. If you have been depressed a long time, are prone to repeated bouts of depression or low mood, or have been thinking of suicide, get help. Depression can be treated with anti-depressant medication and counselling. Long-term depression will often take a few weeks to clear, even with appropriate medication. Follow-up care is important. SUICIDAL IDEATION: Suicidal ideation is a common medical term for thoughts about suicide, which may be as detailed as a formulated plan, without the suicidal act itself. Although most people who undergo suicidal ideation do not commit suicide, some go on to make suicide attempts. The range of suicidal ideation varies greatly from fleeting to detailed planning, role playing, and unsuccessful attempts. While thoughts about suicide are common, most people do not carry out serious actions to commit suicide. Based upon your evaluation and discussion with you, we do not believe you are currently at risk to act upon your thoughts of suicide. You have agreed to return to the Emergency Department, at any time, if you feel inclined to act upon your suicidal thoughts. FOLLOW-UP CARE: If you experience worsening or a significant change in your symptoms, notify the physician immediately or return to the Emergency Department at any time for re- evaluation. Referrals: [facility] [Outside] - Follow up as needed Addendum entered and electronically signed by CATALINA FIGUEROA LCSWA 01/12/19 10 :51: Discharge - Discharge Clinical Impression: Suicidal ideation Clinical Impression: (Ruled Out): Acute psychosis Condition: Stable Disposition: HOME, SELF-CARE Additional Instructions: You have been evaluated both medical and behavioral health teams and been deemed appropriate for discharge. You are encouraged to follow-up with outpatient mental health services in the form of therapeutic intervention to build positive coping skills. You are recommended to continue taking your mental health medications prescribed by her outpatient provider. DEPRESSION: Your evaluation reveals that you have mental depression. While symptoms may be vague, they often include disturbance of sleep, fatigue, loss of appetite, and general loss of interest in life. While depression may be a side effect of drugs, or a reaction to a major change in your life, many cases have no known cause. If depression is acute, and related to a major loss in your life, you can expect it to clear completely with time. If you have been depressed a long time, are prone to repeated bouts of depression or low mood, or have been thinking of suicide, get help. Depression can be treated with anti-depressant medication and counselling. Long-term depression will often take a few weeks to clear, even with appropriate medication. Follow-up care is important. SUICIDAL IDEATION: Suicidal ideation is a common medical term for thoughts about suicide, which may be as detailed as a formulated plan, without the suicidal act itself. Although most people who undergo suicidal ideation do not commit suicide, some go on to make suicide attempts. The range of suicidal ideation varies greatly from fleeting to detailed planning, role playing, and unsuccessful attempts. While thoughts about suicide are common, most people do not carry out serious actions to commit suicide. Based upon your evaluation and discussion with you, we do not believe you are currently at risk to act upon your thoughts of suicide. You have agreed to return to the Emergency Department, at any time, if you feel inclined to act upon your suicidal thoughts. FOLLOW-UP CARE: If you experience worsening or a significant change in your symptoms, notify the physician immediately or return to the Emergency Department at any time for re-evaluation. Referrals: [facility] [Outside] - Follow up as needed Original Note: ED Psych Disorder / Suicide - General Chief Complaint: Suicidal Ideation Stated Complaint: SUICIDAL IDEATION Time Seen by Provider: 01/11/19 10:33 TRAVEL OUTSIDE OF THE [place] IN LAST 30 DAYS: No - HPI Notes: Patient is a 43-year-old female that presents to the emergency department for chief complaint of suicidal ideation and psychosis. Patient states she is hearing voices. She states they are not telling her to hurt herself but she does think about killing herself. She states that she considers taking a needle and stabbing herself. She will not elaborate on where she wants to put the needle to kill herself. She states that she feels acutely psychotic. She states she is on medications for her schizophrenia but she does not know what the medication is. She reports being compliant with medications. She is currently living in a homeless half-way and presented from there today. She states she likes [facility] and feels she needs to return there. She denies any homicidal ideation. She denies any chest pain, shortness of breath, nausea, vomiting, fevers, abdominal pain and urinary complaints Past Medical History: Schizophrenia Past Surgical History: Reviewed in chart Social History: Homeless living in a half-way Family History: Reviewed and noncontributory for presenting illness Allergies: Reviewed, see documented allergy list. REVIEW OF SYSTEMS: CONSTITUTIONAL : No fever No chills No diaphoresis No recent illness EENT: No vision changes No congestion No sore throat CARDIOVASCULAR: No chest pain No palpitations RESPIRATORY: No shortness of breath No cough No difficulty breathing GASTROINTESTINAL: No abdominal pain No nausea No vomiting No diarrhea GENITOURINARY: No dysuria No hematuria No difficulty urinating MUSCULOSKELETAL: No back pain No leg pain No arm pain SKIN: No rashes No lesions LYMPHATIC: No swollen, enlarged glands. NEUROLOGICAL: No lightheadedness No headache No weakness No paresthesias PSYCHIATRIC: anxiety depression PHYSICAL EXAMINATION: Vital signs reviewed, nursing noted reviewed. GENERAL: Well-appearing, well-nourished and in no acute distress. HEAD: Atraumatic, normocephalic. EYES: Eyes appear normal, extraocular movements intact, sclera anicteric, conjunctiva are normal. ENT: nares patent, oropharynx clear without exudates. Moist mucous membranes. NECK: Normal range of motion, supple without lymphadenopathy LUNGS: Breath sounds clear to auscultation bilaterally and equal. No wheezes rales or rhonchi. HEART: Regular rate and rhythm without murmurs ABDOMEN: Soft, nontender, normoactive bowel sounds. No rebound, guarding, or rigidity. No masses appreciated. EXTREMITIES: Nontender, good range of motion, no pitting or edema. NEUROLOGICAL: No focal neurological deficits. Moves all extremities spontaneously Motor and sensory grossly intact on exam. PSYCH: flat affect, poor eye contact, slowed speech, withdrawn, depressed SKIN: Warm, Dry, normal turgor, no rashes or lesions noted on exposed skin - Related Data Allergies/Adverse Reactions: lactose Adverse Reaction (Mild, Verified 01/11/19 10:38) Pork/Porcine Containing Products Adverse Reaction (Verified 01/11/19 10:38) Past Medical History - Social History Smoking Status: Current Every Day Smoker Chew tobacco use (# tins/day): No Frequency of alcohol use: None Drug Abuse: None Family History: Reviewed & Not Pertinent Patient has suicidal ideation: Yes Patient has homicidal ideation: No - Past Medical History Cardiac Medical History: Denies: Hx Congestive Heart Failure, Hx Heart Attack, Hx Hypertension Pulmonary Medical History: Denies: Hx Asthma, Hx Bronchitis, Hx COPD, Hx Pneumonia, Hx Tuberculosis Neurological Medical History: Denies: Hx Seizures Renal/ Medical History: Denies: Hx End Stage Renal Disease, Hx Kidney Stones, Hx Peritoneal Dialysis GI Medical History: Denies: Hx Cirrhosis, Hx Gastroesophageal Reflux Disease, Hx Ulcer Musculoskeletal Medical History: Denies Hx Arthritis, Denies Hx Multiple Sclerosis Psychiatric Medical History: Reports: Hx Depression - pt. thinks maybe, Hx Schizophrenia Denies: Hx Bipolar Disorder Past Surgical History: Reports: Hx Nose Surgery - nose, Hx Orthopedic Surgery - R knee - Immunizations Immunizations up to date: Yes Hx Diphtheria, Pertussis, Tetanus Vaccination: Yes Physical Exam - Vital signs Vitals: Temp Pulse Resp BP Pulse Ox 98.2 F 95 17 140/87 H 98 01/11/19 10:21 01/11/19 10:21 01/11/19 10:21 01/11/19 10:21 01/11/19 10:21 Course - Re-evaluation Re-evalutation: 01/11/19 11:51 Vitals reviewed. Nursing notes reviewed. Patient is a very flat affect and is expressing suicidal ideations. Her lab work is unremarkable. She does have trace leukocytes on urinalysis however the sample is contaminated with epithelial cells and she is not symptomatic of acute UTI, antibiotics not currently indicated. Patient is medically cleared for further psych evaluation which is currently pending. - Vital Signs Vital signs: Temp Pulse Resp BP Pulse Ox 98.2 F 95 17 140/87 H 98 01/11/19 10:21 01/11/19 10:21 01/11/19 10:21 01/11/19 10:21 01/11/19 10:21 - Laboratory Result Diagrams: 01/11/19 10:39 01/11/19 10:39 Laboratory results interpreted by me: 01/11/19 01/11/19 01/11/19 10:39 10:39 11:28 Hct 35.5 L Potassium 3.4 L Glucose 136 H Ur Leukocyte Esterase TRACE H Salicylates < 1.0 L Acetaminophen < 10 L - EKG Interpretation by Me Additional EKG results interpreted by me: 01/11/19 10:59 Interpreted by myself 1039: Normal sinus rhythm, rate 92, normal axis, no ectopy, no ST elevation Discharge - Discharge Clinical Impression: Acute psychosis, Suicidal ideation Condition: Stable
[2019-01-11 11:06] LABS: ACETAMINOPHEN < 10 ug/mL (10-30); ALANINE AMINOTRANSFERASE 26 U/L (9-52); ALBUMIN 4.4 g/dL (3.5-5.0); ALCOHOL < 10 mg/dL (NONE DETECTED); ALKALINE PHOSPHATASE 69 U/L (38-126); ANION GAP 11 (5-19); ASPARTATE AMINO TRANSFERASE 16 U/L (14-36); BILIRUBIN,DIRECT 0.1 mg/dL (0.0-0.4); BILIRUBIN,TOTAL 0.2 mg/dL (0.2-1.3); BLOOD UREA NITROGEN 7 mg/dL (7-20); CALCIUM 9.6 mg/dL (8.4-10.2); CARBON DIOXIDE 28 mmol/L (22-30); CHLORIDE 101 mmol/L (98-107); GLUCOSE 136 mg/dL (75-110); POTASSIUM 3.4 mmol/L (3.6-5.0); SALICYLATE < 1.0 mg/dL (2.0-20.0); SODIUM 140.3 mmol/L (137-145); TOTAL PROTEIN 7.2 g/dL (6.3-8.2)
[2019-01-11 11:12] LABS: ABSOLUTE LYMPHOCYTES (AUTO) 1.4 10^3/uL (0.5-4.7); ABSOLUTE MONOCYTES (AUTO) 0.3 10^3/uL (0.1-1.4); ABSOLUTE NEUT (AUTO) 4.7 10^3/uL (1.7-8.2); BASOPHILS % (AUTO) 0.4 % (0-2); EOSINOPHILS % (AUTO) 0.6 % (0-6); HEMATOCRIT 35.5 % (36.0-47.0); HEMOGLOBIN 12.7 g/dL (12.0-15.5); LYMPHOCYTES % (AUTO) 21.3 % (13-45); MEAN CORPUSCULAR HEMOGLOBIN 33.1 pg (27.0-33.4); MEAN CORPUSCULAR HGB CONC 35.8 g/dL (32.0-36.0); MEAN CORPUSCULAR VOLUME 93 fl (80-97); MONOCYTES % (AUTO) 5.2 % (3-13); PLATELET COUNT 337 10^3/uL (150-450); RED BLOOD COUNT 3.84 10^6/uL (3.72-5.28); RED CELL DISTRIBUTION WIDTH 13.5 % (11.5-14.0); SEGMENTED NEUTROPHILS % (AUTO) 72.5 % (42-78); TOTAL CELLS COUNTED % (AUTO) 100 %; WHITE BLOOD COUNT 6.5 10^3/uL (4.0-10.5)
[2019-01-11 11:39] LABS: APPEARANCE,URINE SLIGHTLY-CLOUDY; BILIRUBIN,URINE NEGATIVE (NEGATIVE); COLOR,URINE YELLOW; GLUCOSE, URINE NEGATIVE (NEGATIVE); KETONES,URINE NEGATIVE (NEGATIVE); LEUKOCYTE ESTERASE,URINE TRACE (NEGATIVE); NITRITE,URINE NEGATIVE (NEGATIVE); PROTEIN,URINE NEGATIVE (NEGATIVE); URINE SPECIFIC GRAVITY 1.004; UROBILINOGEN,URINE NEGATIVE mg/dL (<2.0)
[2019-01-11 11:54] LABS: URINE AMPHETAMINES SCREEN NEGATIVE; URINE BARBITURATES SCREEN NEGATIVE; URINE BENZODIAZEPINES SCREEN NEGATIVE; URINE COCAINE SCREEN NEGATIVE; URINE MARIJUANA (THC) SCREEN NEGATIVE; URINE METHADONE SCREEN NEGATIVE; URINE PHENCYCLIDINE SCREEN NEGATIVE
[2019-01-11] MEDS ORDERED: CHLORPROMAZINE HCL 50 MG TABLET PO PRN (19:23)
[2019-01-11] MEDS: HALOPERIDOL 5 MG TABLET PO SCH (19:42)
[2019-01-11] MEDS: BENZTROPINE MESYLATE 1 MG TABLET PO SCH (19:43)
--- NOTE | 2019-01-11 23:22 | EKG REPORT ---
SEVERITY:- BORDERLINE ECG - SINUS RHYTHM BORDERLINE INFERIOR Q WAVES : Confirmed by: Kayli Prince 11-Jan-2019 23:21:30
[2019-01-12] MEDS: BENZTROPINE MESYLATE 1 MG TABLET PO SCH (09:26)
[2019-01-12] MEDS: HALOPERIDOL 5 MG TABLET PO SCH (09:26)
[2019-01-12 10:13] VITALS: BP 119/75
--- NOTE | 2019-01-24 11:02 | PSYCHOLOGICAL NOTE ---
Psych Note - Psych Note Date seen by psych provider: 01/12/19 Time seen by psych provider: 07:45 Psych Note: Reason for Consult: suicidal ideation Patient arrived to [facility] ED via EMS for suicidal ideation. Check in conducted with patient Patient continues to disclose passive suicidal ideation and requests to be transferred to [facility]. Clinician explained voluntary placement cannot be conducted through [facility]. Patient confirms she was supposed to see her children for the first time in a long time yesterday through DSS supervised visit but continues to maintain that she called her social science analyst to reschedule. Diagnosis: 295.90 (F20.9) Schizophrenia, Paranoid Type by History Medication recommendations made by the psychiatric medical provider, Dr. Alex MD, includes: Haldol decanoate 100 mg once Haldol 5 mg twice daily Cogentin 1 mg daily Impression\plan: Patient is cleared from acute psychiatric services. patient describes passive suicidal ideation i.e. no plans means or intent. Patient has a long history of schizophrenia however appears to be currently medication compliant. Patient's presentation is much improved from previous visits. This is the first time the patient ever is expressed thoughts of wanting to harm herself. This appears to be situational in regards to her obtaining an managing attorney and ongoing situation of both legal difficulties and not being allowed to have contact with her children per [facility]. Patient is recommended to continue with her outpatient mental health services. Dr. Coppola was consulted to care management this patient; attending physician agreement with recommendations and disposition.
== END 2019-01-12 11:00 | disposition home or self-care (01) ==
LOC: ER 10:19
DX: R45.851 Suicidal ideations (principal); F32.9 Major depressive disorder, single episode, unspecified; F20.0 Paranoid schizophrenia; F41.9 Anxiety disorder, unspecified; F17.200 Nicotine dependence, unspecified, uncomplicated; Z79.899 Other long term (current) drug therapy; Z59.0 Homelessness
CPT/HCPCS: 93005; 99285; 36415; 80307 ×4; 85025; 80053; 81001; 93010; J3490

== ENCOUNTER 2019-06-30 19:01 | Emergency (ER) | payer MEDICAID ==
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
[2019-06-30] MEDS ORDERED: LORAZEPAM INJ 2 MG/1 ML VIAL IM ONE (21:27)
[2019-06-30] MEDS ORDERED: HALOPERIDOL LACTATE INJ 5 MG/1 ML VIAL IM ONE (21:27)
[2019-06-30] MEDS ORDERED: BENZTROPINE MESYLATE INJ 2 MG/2 ML AMPULE IM STA (21:28)
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
[2019-06-30 23:06] LABS: ABSOLUTE LYMPHOCYTES (AUTO) 1.3 10^3/uL (0.5-4.7); ABSOLUTE MONOCYTES (AUTO) 0.3 10^3/uL (0.1-1.4); ABSOLUTE NEUT (AUTO) 2.6 10^3/uL (1.7-8.2); BASOPHILS % (AUTO) 0.3 % (0-2); EOSINOPHILS % (AUTO) 0.6 % (0-6); HEMATOCRIT 37.1 % (36.0-47.0); HEMOGLOBIN 12.6 g/dL (12.0-15.5); LYMPHOCYTES % (AUTO) 30.1 % (13-45); MEAN CORPUSCULAR HEMOGLOBIN 31.3 pg (27.0-33.4); MEAN CORPUSCULAR VOLUME 92 fl (80-97); MONOCYTES % (AUTO) 7.6 % (3-13); PLATELET COUNT 268 10^3/uL (150-450); RED BLOOD COUNT 4.03 10^6/uL (3.72-5.28); RED CELL DISTRIBUTION WIDTH 12.7 % (11.5-14.0); SEGMENTED NEUTROPHILS % (AUTO) 61.4 % (42-78); TOTAL CELLS COUNTED % (AUTO) 100 %; WHITE BLOOD COUNT 4.2 10^3/uL (4.0-10.5)
[2019-06-30 23:27] LABS: ALBUMIN 4.2 g/dL (3.5-5.0); ALKALINE PHOSPHATASE 70 U/L (38-126); ANION GAP 9 (5-19); ASPARTATE AMINO TRANSFERASE 21 U/L (14-36); BILIRUBIN,DIRECT 0.1 mg/dL (0.0-0.4); BILIRUBIN,TOTAL 0.1 mg/dL (0.2-1.3); BLOOD UREA NITROGEN 11 mg/dL (7-20); CALCIUM 9.2 mg/dL (8.4-10.2); CARBON DIOXIDE 28 mmol/L (22-30); CHLORIDE 102 mmol/L (98-107); GLUCOSE 94 mg/dL (75-110); POTASSIUM 3.9 mmol/L (3.6-5.0); TOTAL PROTEIN 6.8 g/dL (6.3-8.2)
[2019-06-30 23:31] LABS: ALCOHOL < 10 mg/dL (NONE DETECTED)
[2019-06-30 23:32] LABS: ACETAMINOPHEN < 10 ug/mL (10-30); SALICYLATE < 1.0 mg/dL (2.0-20.0)
[2019-07-01 00:42] LABS: APPEARANCE,URINE CLEAR; BILIRUBIN,URINE NEGATIVE (NEGATIVE); COLOR,URINE YELLOW; GLUCOSE, URINE NEGATIVE (NEGATIVE); KETONES,URINE 20 mg/dL (NEGATIVE); LEUKOCYTE ESTERASE,URINE NEGATIVE (NEGATIVE); NITRITE,URINE NEGATIVE (NEGATIVE); PROTEIN,URINE NEGATIVE (NEGATIVE); URINE SPECIFIC GRAVITY 1.017; UROBILINOGEN,URINE NEGATIVE mg/dL (<2.0)
[2019-07-01 00:56] LABS: URINE AMPHETAMINES SCREEN NEGATIVE; URINE BARBITURATES SCREEN NEGATIVE; URINE BENZODIAZEPINES SCREEN NEGATIVE; URINE COCAINE SCREEN NEGATIVE; URINE MARIJUANA (THC) SCREEN NEGATIVE; URINE METHADONE SCREEN NEGATIVE; URINE PHENCYCLIDINE SCREEN NEGATIVE
[2019-07-01] MEDS ORDERED: HALOPERIDOL DECANOATE INJ 100 MG/1 ML VIAL IM ONE (13:34)
[2019-07-01] MEDS ORDERED: BENZTROPINE MESYLATE 1 MG TABLET PO SCH (13:45)
[2019-07-01] MEDS: HALOPERIDOL 5 MG TABLET PO SCH ×2 (14:18→18:28)
--- NOTE | 2019-07-01 15:33 | PSYCHOLOGICAL NOTE ---
Psych Note - Psych Note Date seen by psych provider: 07/01/19 Time seen by psych provider: 09:00 Psych Note: Reason for Consult: Psychosis Diagnosis: 295.90 (F20.9) Schizophrenia, Paranoid Type by History Medication recommendations made by the psychiatric medical provider, Dr. Alex MD, includes: Haldol decanoate 100 mg once Haldol 5 mg twice daily Cogentin 1 mg daily Impression/Plan: Patient is recommended for IVC. This patient is well-known to clinician and department. Patient has a diagnosis of schizophrenia paranoid type. Patient has had numerous inpatient psychiatric treatments after getting off medications. Patient has been accepted to [facility]; transportation has been requested. Dr. Coppola was consulted and the care management of this patient; attending physicians in agreement with recommendations and disposition.
[2019-07-01] MEDS ORDERED: NICOTINE 14 MG/24 HR PATCH.TD24 TD ONE (15:42)
--- NOTE | 2019-07-01 19:33 | ER Document Report ---
Doctor's Note Notes: 07/01/19 19:31 Rounds: Chart reviewed and patient interviewed. Patient came to the emergency department actively psychotic, combative, confused. She has a history of schizophrenia. Labs were unremarkable. Vital signs are unremarkable. Patient appears to be medically stable for transfer or discharge. Lora Serna MD
[2019-07-01 23:48] VITALS: BP 104/47
--- NOTE | 2019-07-02 18:40 | EKG REPORT ---
SEVERITY:- BORDERLINE ECG - SINUS RHYTHM BORDERLINE INFERIOR Q WAVES : Confirmed by: Kayli Prince 02-Jul-2019 18:40:06
== END 2019-07-02 00:30 ==
LOC: ER 19:01
DX: F20.9 Schizophrenia, unspecified (principal); F29 Unspecified psychosis not due to a substance or known physiological condition; F17.200 Nicotine dependence, unspecified, uncomplicated
CPT/HCPCS: 93005; 96376; 99285; 96374; 96375; 36415; 80307 ×4; 84703; 85025; 80053; 81001; 93010; J3490 ×3; J0515; J1631; J1630; J2060

== ENCOUNTER → 2020-02-01 | Outpatient (CLI) | payer OTHER, MEDICAID ==
--- NOTE | 2020-02-01 20:18 | RADIOLOGY REPORT (SQ) ---
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 Additional thin section sagittal and coronal T2, T1 precontrast, T1 postcontrast images through the p ituitary gland were obtained. Images stored on PACS. CONTRAST TYPE AND DOSE: 15 mL Dotarem. RENAL FUNCTION: Not indicated. ACR Type II contrast agent associated with few, if any, unconfounded cases of NSF LIMITATIONS: None. FINDINGS: PITUITARY FOSSA: Pituitary gland is normal size, 7 mm craniocaudad by 11 mm AP x 18 mm tr ansverse. In the anterior lobe pituitary gland, a 5 mm nodule is present, bright on T2 weighted images, enhanci ng to a lesser degree than the remainder of the pituitary gland. This could represent a small pituit sharda cyst or microadenoma. This is best shown on postcontrast T1 coronal image 4 and sagittal image 6 . Suprasellar cistern, optic chiasm, cavernous sinuses are normal. CSF SPACES: Normal in size and contour. No hemorrhage. CEREBRUM: Sulci and gyri normal in size and contour. Normal white matter signal on FLAIR imaging. No evidence of hemorrhage, mass, or extraaxial fluid collection. No abnormal enhancement post contrast. POSTERIOR FOSSA: No signal alteration. No hemorrhage. No edema, masses, or mass effect. Internal robyn tory canals, cerebellopontine angles, mastoids normal. No enhancing lesions. No abnormal enhancement post contrast. DIFFUSION IMAGING: Negative for acute or subacute infarction. ORBITS: No masses. Globes normal. PARANASAL SINUSES: Air-fluid level right maxillary sinus from acute sinusitis. Paranasal sinuses are otherwise clear. OTHER: No other significant finding. IMPRESSION: 5 mm pituitary cyst versus nonenhancing adenoma, anterior lobe pituitary gland. Incidental finding of an air-fluid level right maxillary sinus from sinusitis. EVIDENCE OF ACUTE STROKE: NO. TECHNICAL DOCUMENTATION: JOB ID: [id number] 2010 [employer]- All Rights Reserved Reading location - IP/workstation name: [email or web address]
== END ==
LOC: RAD 15:40
PROVIDERS: ATTEND Obstetrics & Gynecology Gynecology
DX: D35.2 Benign neoplasm of pituitary gland (principal)
CPT/HCPCS: 70553; A9576

== ENCOUNTER → 2020-09-16 | Outpatient (CLI) | payer OTHER, MEDICAID ==
--- NOTE | 2020-09-16 12:00 | RADIOLOGY REPORT (SQ) ---
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 Images stored on PACS. CONTRAST TYPE AND DOSE: 10 mL Prohance. RENAL FUNCTION: Not indicated. ACR Type II contrast agent associated with few, if any, unconfounded cases of NSF LIMITATIONS: None. FINDINGS: ANATOMY: No anomalies. Normal vascular flow voids. Pituitary fossa normal. CSF SPACES: Normal in size and contour. No hemorrhage. CEREBRUM: Sulci and gyri normal in size and contour. Normal white matter signal on FLAIR imaging. No evidence of hemorrhage, mass, or extraaxial fluid collection. No abnormal enhancement post contrast. POSTERIOR FOSSA: No signal alteration. No hemorrhage. No edema, masses, or mass effect. Internal robyn tory canals, cerebellopontine angles, mastoids normal. No enhancing lesions. No abnormal enhancement post contrast. DIFFUSION IMAGING: Negative for acute or subacute infarction. ORBITS: No masses. Globes normal. PARANASAL SINUSES: No fluid levels. Mucosa normal. OTHER: Pituitary fossa again demonstrates an approximately 5 to 6 mm nodule demonstrating bright sign al on T2 weighted sequences and isointense signal on T1 weighted images. Subtle change in configurat ion when compared to prior study. No significant change in size is appreciated. IMPRESSION: Slight change in configuration of the small adrenal lesion. No appreciable change in si ze. No change in signal characteristics. EVIDENCE OF ACUTE STROKE: NO. TECHNICAL DOCUMENTATION: JOB ID: [id number] 2010 [employer]- All Rights Reserved Reading location - IP/workstation name: [email or web address]
== END ==
LOC: RAD 10:02
PROVIDERS: ATTEND Physician Assistant Surgical
DX: D25.2 Subserosal leiomyoma of uterus (principal)
CPT/HCPCS: 70553; A9576